=== PATIENT | female | born 1945 | race Caucasian/White ===

== ENCOUNTER 2016-04-27 08:00 | Outpatient (CLI) | payer MEDICARE, MEDICAID | END 2016-04-27 08:01 | disposition home or self-care (01) | DX: R53.83 Other fatigue (principal); I10 Essential (primary) hypertension; M85.80 Other specified disorders of bone density and structure, unspecified site; J44.9 Chronic obstructive pulmonary disease, unspecified; Z79.899 Other long term (current) drug therapy; I67.89 Other cerebrovascular disease; F43.8 Other reactions to severe stress ==

== ENCOUNTER 2016-04-27 10:17 | Outpatient (CLI) | payer MEDICARE, MEDICAID | END 2016-04-27 10:18 | disposition home or self-care (01) | DX: M19.012 Primary osteoarthritis, left shoulder (principal); R53.83 Other fatigue; J44.9 Chronic obstructive pulmonary disease, unspecified; M85.80 Other specified disorders of bone density and structure, unspecified site; I67.89 Other cerebrovascular disease; Z79.899 Other long term (current) drug therapy; F43.8 Other reactions to severe stress; I10 Essential (primary) hypertension ==

== ENCOUNTER 2016-05-30 10:33 | Outpatient (CLI) | payer MEDICARE, MEDICAID | END 2016-05-30 10:34 | disposition critical access hospital (66) | LOC: EMS 10:33 | PROVIDERS: ATTEND Surgery | DX: M25.551 Pain in right hip (principal); W10.1XXA Fall (on)(from) sidewalk curb, initial encounter; Y92.414 Local residential or business street as the place of occurrence of the external cause | CPT/HCPCS: A0425; A0429 ==

== ENCOUNTER 2016-05-30 10:47 | Emergency (ER) | payer MEDICARE, MEDICAID ==
[2016-05-30] MEDS ORDERED: HYDROcod/ACETAM 5/325 MG TABLET PO STA (12:12)
[2016-05-30] MEDS ORDERED: SODIUM CHLORIDE 0.9% 1,000 ML IV ONE (12:13)
[2016-05-30] MEDS ORDERED: THIAMINE 100 MG TABLET PO STA (12:13)
[2016-05-30] MEDS ORDERED: HYDROcod/ACETAM 5/325 MG TABLET ONE (12:17)
[2016-05-30] MEDS ORDERED: THIAMINE 100 MG TABLET PO ONE (12:17)
== END 2016-05-30 15:22 | disposition home or self-care (01) ==
DX: S32.511A Fracture of superior rim of right pubis, initial encounter for closed fracture (principal); S13.9XXA Sprain of joints and ligaments of unspecified parts of neck, initial encounter; S00.83XA Contusion of other part of head, initial encounter; W01.0XXA Fall on same level from slipping, tripping and stumbling without subsequent striking against object, initial encounter; Y92.018 Other place in single-family (private) house as the place of occurrence of the external cause; F10.129 Alcohol abuse with intoxication, unspecified; Y90.6 Blood alcohol level of 120-199 mg/100 ml; M50.30 Other cervical disc degeneration, unspecified cervical region; M47.9 Spondylosis, unspecified; I11.0 Hypertensive heart disease with heart failure; I50.9 Heart failure, unspecified; Z96.643 Presence of artificial hip joint, bilateral; J44.9 Chronic obstructive pulmonary disease, unspecified; K21.9 Gastro-esophageal reflux disease without esophagitis; Z86.73 Personal history of transient ischemic attack (TIA), and cerebral infarction without residual deficits; F17.200 Nicotine dependence, unspecified, uncomplicated
CPT/HCPCS: 36415; 70450; 71010; 72125; 73521; 80053; 83690; 85025; 99284; A9270; G0480

== ENCOUNTER 2016-09-22 23:50 | Outpatient (CLI) | payer MEDICARE, MEDICAID | END 2016-09-22 23:51 | disposition critical access hospital (66) | LOC: EMS 23:50 | PROVIDERS: ATTEND Surgery | DX: M25.511 Pain in right shoulder (principal); M54.9 Dorsalgia, unspecified; W18.30XA Fall on same level, unspecified, initial encounter; Y92.038 Other place in apartment as the place of occurrence of the external cause | CPT/HCPCS: A0425; A0427 ==

== ENCOUNTER 2016-09-23 00:03 | Emergency (ER) | payer MEDICARE, MEDICAID ==
--- NOTE | 2016-09-23 00:14 | ED Physician Documentation ---
PD HPI UPPER EXT INJURY - Stated complaint Stated Complaint: [facility] - Chief complaint Chief Complaint: Ext Problem - History obtained from History obtained from: Patient - History of Present Illness Location: Right, Shoulder Type of injury: Fall Where injury occurred: Street Timing - details: Abrupt onset Pain level max: 10 Pain level now: 10 Improved by: Nothing Worsened by: Moving, Palpating Associated symptoms: No: Weakness, Numbness Similar symptoms before: Has not had sx before Recently seen: Not recently seen - Additonal information Additional information: lost balance, fell, c/o right shoulder pain Review of Systems Musculoskeletal: reports: Joint pain. 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 HEENT: Tonsil/Adenoidectomy - Present Medications Home Medications: Ambulatory Orders Medication Instructions Recorded Confirmed FLUoxetine [PROzac] 40 mg PO DAILY 09/17/12 08/03/15 Lisinopril [Zestril] 10 mg PO DAILY 09/17/12 08/03/15 Omeprazole [PriLOSEC] 20 mg PO DAILY 09/17/12 08/03/15 Albuterol Sulfate 2.5 mg NEB Q2-4H PRN 12/26/14 08/03/15 Furosemide 40 mg PO DAILY 12/26/14 08/03/15 Hydrocodone/Acetaminophen [[place] 1 each PO Q6H PRN #20 tablet 06/09/15 08/03/15 5-325 Tablet] HYDROcod/ACETAM 5/325 [[place] 5/325] 1 - 2 ea PO Q6H PRN #20 tablet 08/03/15 HYDROcod/ACETAM 5/325 [[place] 5/325] 1 - 2 ea PO Q6H PRN #15 tablet 05/30/16 HYDROcod/ACETAM 5/325 [[place] 5/325] 1 - 2 ea PO Q6H PRN #12 tablet 09/23/16 - Allergies Allergies/Adverse Reactions: Allergies Allergy/AdvReac Type Severity Reaction Status Date / Time Penicillins Allergy Intermediate Hives Verified 09/23/16 00:07 - Social History Does the pt smoke?: Yes Smoking Status: Current some day smoker Does the pt drink ETOH?: Yes Does the pt have substance abuse?: No - Immunizations Immunizations are current?: No Immunizations: TDAP >10years/unknown - POLST Patient has POLST: No PD ED PE NORMAL - Vitals Vital signs reviewed: Yes - General General: Alert and oriented X 3, Well developed/nourished, Other (painful distress; holding RUE above head) - HEENT HEENT: PERRL, EOMI - Cardiac Cardiac: RRR, No murmur - Respiratory Respiratory: No respiratory distress, Clear bilaterally - Abdomen Abdomen: Soft, Non tender - Derm Derm: Normal color, Warm and dry - Neuro Neuro: Alert and oriented X 3, No motor deficit, No sensory deficit Results - Vitals Vitals: Vital Signs - 24 hr 09/23/16 09/23/16 09/23/16 00:05 00:54 01:09 Temperature 36.2 C L Heart Rate 65 87 66 Respiratory 16 16 18 Rate Blood Pressure 132/87 H 141/80 H 121/81 H O2 Saturation 94 97 100 09/23/16 09/23/16 09/23/16 01:10 01:16 01:22 Temperature Heart Rate 68 66 67 Respiratory 14 20 15 Rate Blood Pressure 118/74 118/69 O2 Saturation 98 100 09/23/16 09/23/16 09/23/16 01:26 01:32 01:35 Temperature Heart Rate 70 69 71 Respiratory 15 14 15 Rate Blood Pressure 123/66 123/66 128/69 O2 Saturation 100 99 95 09/23/16 09/23/16 01:51 02:40 Temperature Heart Rate 70 71 Respiratory 14 16 Rate Blood Pressure 118/66 116/67 O2 Saturation 97 94 Oxygen O2 Source [With Activity] Nasal cannula O2 Source Room air - Rads (name of study) right shoulder xrays Radiology: Prelim report reviewed, See rad report right shoulder post-reduction xrays Radiology: Prelim report reviewed, See rad report Procedures - Reduction Body part reduced: Right, Shoulder Fracture or dislocation: Dislocation Anesthesia: Conscious sedation, Morphine, Propofol Shoulder reduction technique: Traction - counter tract Reduction aftercare: NV intact, Xray confirms reduction, Alignment improved, Sling, Patient tolerated well PD MEDICAL DECISION MAKING - ED course Complexity details: reviewed results, re-evaluated patient, considered differential, d/w patient Departure - Departure Disposition: 01 Home, Self Care Clinical Impression: Dislocation closed, shoulder Condition: Good Instructions: ED Dislocation Shoulder Redu, ED Sling Follow-Up: Osbaldo Bunch MD [Provider Admit Priv/Credential] - Within 1 week Prescriptions: HYDROcod/ACETAM 5/325 [[place] 5/325] 1 - 2 ea PO Q6H PRN #12 tablet PRN Reason: Pain Discharge Date/Time: 09/23/16 03:07
[2016-09-23] MEDS ORDERED: MORPHINE 2 MG/ML SYRINGE IVP STA ×2 (00:19→00:54)
[2016-09-23] MEDS ORDERED: MORPHINE 2 MG/ML SYRINGE ONE ×2 (00:27→00:57)
[2016-09-23] MEDS ORDERED: PROPOFOL 200 MG/20 ML VIAL IVP STA (00:54)
[2016-09-23] MEDS ORDERED: PROPOFOL 1000 MG/100 ML 0 ML IV ONE (00:57)
[2016-09-23] MEDS ORDERED: PROPOFOL 200 MG/20 ML VIAL IVP ONE (01:00)
--- NOTE | 2016-09-23 01:18 | XRAY Preliminary Report ---
Exam: XR Shoulder 3 View RT IMPRESSION: Inferior dislocation of the humerus relative to the glenoid. Sensitivity and specificity are reduced due to difficulty with patient positioning. [facility] SITE ID: [id number]
--- NOTE | 2016-09-23 01:21 | XRAY Report ---
EXAM: RIGHT SHOULDER RADIOGRAPHY EXAM DATE: 09/23/2016 12:55 AM. CLINICAL HISTORY: Fall, pain, deformity of the shoulder. COMPARISON: 09/17/2012 TECHNIQUE: 3 views. FINDINGS: Bones: No definite displaced acute fracture demonstrated at this time. Joints: There is inferior dislocation of the humeral head relative to the glenoid. Soft tissues: The visualized hemithorax is unremarkable. No soft tissue swelling. IMPRESSION: Inferior dislocation of the humerus relative to the glenoid. Sensitivity and specificity are reduced due to difficulty with patient positioning. [facility] Referring Provider Line: [phone] SITE ID: [id number]
--- NOTE | 2016-09-23 02:20 | XRAY Preliminary Report ---
Exam: XR Shoulder 3 View RT IMPRESSION: 1. Successful reduction. 2. No displaced fracture. [facility] SITE ID: [id number]
--- NOTE | 2016-09-23 02:23 | XRAY Report ---
EXAM: RIGHT SHOULDER RADIOGRAPHY EXAM DATE: 09/23/2016 01:42 AM. CLINICAL HISTORY: Postreduction, difficulty holding position COMPARISON: Comparison made with exam acquired earlier today at 0038 hours. Also comparison made with 09/17/2012 TECHNIQUE: 3 views. FINDINGS: Bones: No displaced fracture demonstrated at this time. Joints: Anatomic glenohumeral articulation. There is severe degenerative change about the shoulder. Soft tissues: Chronic rotator cuff insufficiency with high riding humeral head. IMPRESSION: 1. Successful reduction. 2. No displaced fracture. [facility] Referring Provider Line: [phone] SITE ID: [id number]
[2016-09-23 02:41] VITALS: BP 116/67
== END 2016-09-23 03:07 | disposition home or self-care (01) ==
LOC: EDUNIT# → ED 00:03
DX: S43.034A Inferior dislocation of right humerus, initial encounter (principal); W18.30XA Fall on same level, unspecified, initial encounter; I10 Essential (primary) hypertension; F17.200 Nicotine dependence, unspecified, uncomplicated; Z86.73 Personal history of transient ischemic attack (TIA), and cerebral infarction without residual deficits; Z96.649 Presence of unspecified artificial hip joint
CPT/HCPCS: 23650; 94770; 96374; 96376; 99284

== ENCOUNTER 2016-10-03 13:37 | Outpatient (CLI) | payer MEDICARE, MEDICAID ==
--- NOTE | 2016-10-03 18:57 | XRAY Report ---
BILATERAL HIPS AND PELVIS: 10/03/2016 CLINICAL INDICATION: Right pubic ramus fracture. Frontal view of the hips and pelvis, and bilateral frog-leg lateral views of the hips are compared to previous films of 05/30/2016. There has been interval healing of the right superior and inferior pu bic rami fractures, with callus formation present. No new fracture is seen. Bilateral hip replaceme nts are stable. IMPRESSION: HEALING RIGHT SUPERIOR AND INFERIOR PUBIC RAMI FRACTURES. JOB #: [id number] EXT JOB #:[id number]
== END 2016-10-03 13:38 | disposition home or self-care (01) ==
LOC: DI.N 13:37
PROVIDERS: ATTEND Physician Assistant
DX: S32.591D Other specified fracture of right pubis, subsequent encounter for fracture with routine healing (principal)
CPT/HCPCS: 73521

== ENCOUNTER 2017-04-02 01:51 | Outpatient (CLI) | payer MEDICARE, MEDICAID | END 2017-04-02 01:52 | disposition critical access hospital (66) | LOC: EMS 01:51 | PROVIDERS: ATTEND Surgery | DX: R11.2 Nausea with vomiting, unspecified (principal); R05 Cough; R52 Pain, unspecified | CPT/HCPCS: A0425; A0429 ==

== ENCOUNTER 2017-04-02 02:07 | Inpatient (IN) | payer MEDICARE, MEDICAID ==
[2017-04-02] MEDS ORDERED: SODIUM CHLORIDE 0.9% 1,000 ML IV ONE ×3 (02:16→13:54)
[2017-04-02] MEDS ORDERED: KETOROLAC 60 MG/2 ML VIAL IVP STA (02:16)
[2017-04-02] MEDS ORDERED: ONDANSETRON 4 MG/2 ML VIAL IVP STA (02:16)
[2017-04-02] MEDS ORDERED: IPRATROPIUM/ALBUTEROL 3 ML NEB INH STA (02:16)
--- NOTE | 2017-04-02 02:51 | XRAY Preliminary Report ---
Exam: XR CHEST 1 VIEW X-RAY IMPRESSION: 1. Mild enlargement of cardiac silhouette. Borderline pulmonary vascular congestion. 2. New small left medial basilar airspace disease. This may be due to atelectasis, aspiration, and/or pneumonia. [facility] SITE ID: [id number]
--- NOTE | 2017-04-02 02:51 | XRAY Report ---
EXAM: CHEST RADIOGRAPHY EXAM DATE: 04/02/2017 02:28 AM. CLINICAL HISTORY: Fever COMPARISON: 05/30/2016, 08/03/2015 TECHNIQUE: 1 view. FINDINGS: Lungs/Pleura: Borderline central pulmonary vascular congestion noted. There is small patchy left medi al basilar airspace disease. No effusion or pneumothorax. Mediastinum: Nonspecific mild enlarged appearance of the right coronary hilum. Mild enlargement of ca rdiac silhouette. Other: Moderate right shoulder degenerative change. IMPRESSION: 1. Mild enlargement of cardiac silhouette. Borderline pulmonary vascular congestion. 2. New small left medial basilar airspace disease. This may be due to atelectasis, aspiration, and/or pneumonia. [facility] Referring Provider Line: [phone] SITE ID: [id number]
[2017-04-02] MEDS ORDERED: AZITHROMYCIN INJ 500 MG in SODIUM CHLORIDE 0.9% 250 ML IV STA (02:53)
--- NOTE | 2017-04-02 02:58 | ED Physician Documentation ---
PD HPI URI - Stated complaint Stated Complaint: BODY ACHES, WHEEZING - Chief complaint Chief Complaint: General - History obtained from History obtained from: Patient, EMS - History of Present Illness Timing - onset: Yesterday Timing details: Gradual onset, Still present Associated symptoms: Fever, Chills, Sweats, Nasal congestion, Sore throat, Dry cough Contributing factors: Sick contact Similar symptoms before: Has not had sx before Recently seen: Not recently seen - Additional information Additional information: Patient is a 72 year old female who is presenting to the emergency department for fever, chills, and generalized aches. patient states that the symptoms have been going on for a couple of days and they have become progressively worse. Review of Systems Constitutional: reports: Fever, Chills, Myalgias, Sweats Eyes: denies: Decreased vision, Photophobia Ears: denies: Loss of hearing, Ear pain Nose: reports: Rhinorrhea / runny nose, Congestion Throat: reports: Sore throat Cardiac: denies: Chest pain / pressure, Palpitations Respiratory: reports: Dyspnea, Cough, Wheezing GI: reports: Nausea. denies: Vomiting, Constipation : denies: Dysuria, Frequency, Hesitancy Skin: denies: Rash, Lesions Musculoskeletal: reports: Neck pain, Back pain, Extremity pain, Joint pain Neurologic: reports: Generalized weakness. 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 HEENT: Tonsil/Adenoidectomy - Present Medications Home Medications: Ambulatory Orders Medication Instructions Recorded Confirmed FLUoxetine [PROzac] 40 mg PO DAILY 09/17/12 08/03/15 Lisinopril [Zestril] 10 mg PO DAILY 09/17/12 08/03/15 Omeprazole [PriLOSEC] 20 mg PO DAILY 09/17/12 08/03/15 Albuterol Sulfate 2.5 mg NEB Q2-4H PRN 12/26/14 08/03/15 Furosemide 40 mg PO DAILY 12/26/14 08/03/15 Hydrocodone/Acetaminophen [[place] 1 each PO Q6H PRN #20 tablet 06/09/15 08/03/15 5-325 Tablet] HYDROcod/ACETAM 5/325 [[place] 5/325] 1 - 2 ea PO Q6H PRN #20 tablet 08/03/15 HYDROcod/ACETAM 5/325 [[place] 5/325] 1 - 2 ea PO Q6H PRN #15 tablet 05/30/16 HYDROcod/ACETAM 5/325 [[place] 5/325] 1 - 2 ea PO Q6H PRN #12 tablet 09/23/16 - Allergies Allergies/Adverse Reactions: Allergies Allergy/AdvReac Type Severity Reaction Status Date / Time Penicillins Allergy Intermediate Hives Verified 04/02/17 02:20 - Social History Does the pt smoke?: Yes Smoking Status: Current some day smoker Does the pt drink ETOH?: Yes Does the pt have substance abuse?: No - Immunizations Immunizations are current?: No Immunizations: TDAP >10years/unknown - POLST Patient has POLST: No PD ED PE NORMAL - HEENT HEENT: Atraumatic, Pharynx benign - Neck Neck: Supple, no meningeal sign - Abdomen Abdomen: Soft, Non tender, Non distended - Derm Derm: Normal color, Warm and dry, No rash - Extremities Extremities: No deformity, Normal ROM s pain, No edema, No calf tenderness / cord - Neuro Neuro: Alert and oriented X 3, No motor deficit, No sensory deficit, Normal speech Eye Opening: To Voice Motor: Obeys Commands Verbal: Oriented GCS Score: 14 PD ED PE EXPANDED - General General: Alert - HEENT HEENT: Dry mucous membranes - Respiratory Respiratory: Rhonchi, Right lower lobe, Left lower lobe. No: Stridor, Gasping, Accessory mm use Results - Vitals Vitals: Vital Signs - 24 hr 04/02/17 04/02/17 04/02/17 02:17 02:30 02:33 Temperature 37.9 C H Heart Rate 93 83 87 Respiratory 20 18 17 Rate Blood Pressure 152/77 H 154/86 H O2 Saturation 97 100 04/02/17 04/02/17 04/02/17 03:20 03:35 03:59 Temperature Heart Rate 87 101 H Respiratory 18 15 16 Rate Blood Pressure 136/73 H 136/73 H O2 Saturation 88 L 97 96 04/02/17 04:19 Temperature Heart Rate 108 H Respiratory 20 Rate Blood Pressure 133/71 H O2 Saturation 97 Oxygen O2 Source [] Nasal cannula O2 Source Nasal cannula Oxygen Flow Rate 2 - EKG (time done) 0349 Rate: Rate (enter#) (99) Rhythm: NSR QRS: LVH Ischemia: ST depression Compare to prior EKG: Changed from prior EKG Computer interpretation: Agree with computer - Labs Labs: Laboratory Tests 04/02/17 04/02/17 04/02/17 02:23 03:27 03:27 WBC 21.0 H RBC 4.24 Hgb 13.5 Hct 40.1 MCV 94.5 MCH 31.8 H MCHC 33.6 RDW 14.1 Plt Count 229 MPV 8.0 Neut # 19.8 H Lymph # 0.4 L Crawford # 0.8 Eos # 0.0 Baso # 0.0 Absolute Nucleated RBC 0.01 Nucleated RBC % 0.0 Manual Slide Review Indicated WBC Morphology NORMAL APPEARANCE Platelet Estimate NORMAL (130-450,000) Platelet Morphology NORMAL APPEARANCE RBC Morph Micro Appear NORMAL APPEARANCE Sodium 138 Potassium 3.4 L Chloride 104 Carbon Dioxide 23 Anion Gap 11.0 BUN 14 Creatinine 1.0 Estimated GFR (MDRD) 55 L Glucose 121 H Calcium 8.9 Total Bilirubin 1.7 H AST 23 ALT 12 Alkaline Phosphatase 70 Troponin I B-Natriuretic Peptide Total Protein 7.7 Albumin 3.9 Globulin 3.8 Albumin/Globulin Ratio 1.0 Lipase 13 L Influenza A (Rapid) Negative Influenza B (Rapid) Negative Influenza Types A,B Ag - 04/02/17 04/02/17 03:27 03:27 WBC RBC Hgb Hct MCV MCH MCHC RDW Plt Count MPV Neut # Lymph # Crawford # Eos # Baso # Absolute Nucleated RBC Nucleated RBC % Manual Slide Review WBC Morphology Platelet Estimate Platelet Morphology RBC Morph Micro Appear Sodium Potassium Chloride Carbon Dioxide Anion Gap BUN Creatinine Estimated GFR (MDRD) Glucose Calcium Total Bilirubin AST ALT Alkaline Phosphatase Troponin I < 0.04 B-Natriuretic Peptide 924 H Total Protein Albumin Globulin Albumin/Globulin Ratio Lipase Influenza A (Rapid) Influenza B (Rapid) Influenza Types A,B Ag - Rads (name of study) chest x-ray Radiology: Final report received (new right medial consolidation) PD MEDICAL DECISION MAKING - ED course Complexity details: reviewed old records, reviewed results, re-evaluated patient , considered differential, d/w patient ED course: patient was seen and examined at bedside. IV access was gained and patient was treated with a fluid bolus. Chest x-ray was performed and showed a new right sided consolidation and mild pulmonary vascular congestion. Patient was treated with azithromycin. Influenza A was negative. when bnp came back it was found to be 900. patient's last bnp was only 156 three years ago. Patient was treated with a lasix 40mg. Hospitalist was contacted and the case was discussed with her. juan was admitted for further evaluation and care. Departure - Departure Disposition: 66 [facility] DC/Xfer Clinical Impression: Pneumonia, CHF (congestive heart failure) Condition: Stable
[2017-04-02 03:46] LABS: BASOPHILS % (AUTO) 0.2 %; HGB - HEMOGLOBIN 13.5 g/dL (12.0-16.0); LYMPHOCYTES # (AUTO) 0.4 10^3/uL (1.5-3.5); LYMPHOCYTES % (AUTO) 1.9 %; MEAN CORPUSCULAR HEMOGLOBIN 31.8 pg (27.0-31.0); MEAN CORPUSCULAR HGB CONC 33.6 g/dL (32.0-36.0); MEAN CORPUSCULAR VOLUME 94.5 fL (81.0-99.0); MONOCYTES # (AUTO) 0.8 10^3/uL (0.0-1.0); MONOCYTES % (AUTO) 3.6 %; NEUTROPHILS # (AUTO) 19.8 10^3/uL (1.5-6.6); NEUTROPHILS % (AUTO) 94.3 %; PLT - PLATELET COUNT 229 10^3/uL (130-450); RED BLOOD COUNT 4.24 10^6/uL (4.20-5.40); RED CELL DISTRIBUTION WIDTH 14.1 % (12.0-15.0)
[2017-04-02] MEDS ORDERED: ACETAMINOPHEN 500 MG TABLET PO STA (03:55)
[2017-04-02 03:56] LABS: ALBUMIN 3.9 g/dL (3.2-5.5); BILIRUBIN,TOTAL 1.7 mg/dL (0.2-1.0); CALCIUM 8.9 mg/dL (8.5-10.3); TOTAL PROTEIN 7.7 g/dL (6.7-8.2)
[2017-04-02 04:17] LABS: PLATELET ESTIMATE, MANUAL NORMAL (130-450,000) (NORMAL); PLATELET MORPHOLOGY NORMAL APPEARANCE (NORMAL); RBC MORPHOLOGY (MULTIPLE) NORMAL APPEARANCE (NORMAL)
[2017-04-02] MEDS ORDERED: FUROSEMIDE 40 MG/4 ML VIAL IVP STA (04:18)
[2017-04-02] MEDS ORDERED: TEMAZEPAM 15 MG CAPSULE PO PRN (04:56)
[2017-04-02] MEDS ORDERED: ACETAMINOPHEN 325 MG TABLET PO PRN (04:56)
[2017-04-02] MEDS ORDERED: PROCHLORPERAZINE 10 MG/2 ML VIAL IVP PRN (04:56)
[2017-04-02] MEDS ORDERED: SODIUM CHLORIDE FLUSH 0.9% 10 ML SYRINGE IVP PRN (04:56)
--- NOTE | 2017-04-02 05:02 | HISTORY & PHYSICAL EXAMINATION ---
Chief Complaint - Chief Complaint Chief Complaint: Shortness of breath and body aches History of Present Illness - Admitted From Admitted From:: Home - History of Present Illness HPI Comment/Other: Ms. Anel Nance is a 72-year-old lady with a history of worsening body aches and chills with some difficulty breathing over the last several days. This has progressed to the point where the patient felt she needed to come into the emergency department. While in the ED the patient was found to have a small patchy infiltrate and increasing vascular markings on her chest x-ray. She was also found to have a BNP greater than 900. 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 - Substance History Use: Uses substance without health or social issues: Tobacco, Alcohol - POLST Patient has POLST: Yes POLST Status: DNR Meds/Allgy - Home Medications Home Medications: Ambulatory Orders Medication Instructions Recorded Confirmed FLUoxetine [PROzac] 40 mg PO DAILY 09/17/12 08/03/15 Lisinopril [Zestril] 10 mg PO DAILY 09/17/12 08/03/15 Omeprazole [PriLOSEC] 20 mg PO DAILY 09/17/12 08/03/15 Albuterol Sulfate 2.5 mg NEB Q2-4H PRN 12/26/14 08/03/15 Furosemide 40 mg PO DAILY 12/26/14 08/03/15 Hydrocodone/Acetaminophen [[place] 1 each PO Q6H PRN #20 tablet 06/09/15 08/03/15 5-325 Tablet] HYDROcod/ACETAM 5/325 [[place] 5/325] 1 - 2 ea PO Q6H PRN #20 tablet 08/03/15 HYDROcod/ACETAM 5/325 [[place] 5/325] 1 - 2 ea PO Q6H PRN #15 tablet 05/30/16 HYDROcod/ACETAM 5/325 [[place] 5/325] 1 - 2 ea PO Q6H PRN #12 tablet 09/23/16 - Allergies Allergies/Adverse Reactions: Allergies Allergy/AdvReac Type Severity Reaction Status Date / Time Penicillins Allergy Intermediate Hives Verified 04/02/17 02:20 Review of Systems - Constitutional Constitutional: reports: Fatigue, Fever, Chills, Weakness, Poor appetite - Eyes Eyes: denies: Pain, Irritation, Blurred vision, Dipolpia - Ears, Nose & Throat Ears, Nose & Throat: denies: Ear pain, Hearing loss, Hearing aids, Tinnitus, Vertigo, Nasal discharge - Cardiovascular Cariovascular: denies: Irregular heart rate, Palpitations, Chest pain, Syncope - Respiratory Respiratory: reports: Cough, Sputum production, SOB with exertion. denies: Wheezing, Hemoptysis, Orthopnea - Gastrointestinal Gastrointestinal: reports: Abdominal pain, Nausea, Vomiting. denies: Rectal bleeding, Reed blood emesis - Genitourinary Genitourinary: denies: Dysuria, Frequency, Urgency, Hematuria - Musculoskeletal Musculoskeletal: reports: Muscle aches, Stiffness. denies: Muscle pain, Back pain, Gout, Joint pain - Integumentary Integumentary: denies: Rash, Pruritis, Lesions, Dryness - Neurological Neurological: reports: General weakness, Headache. denies: Focal weakness, Dizziness, Numbness - Psychiatric Psychiatric: denies: Depression, Anxiety, Suicidal, Hallucinations - Endocrine Endocrine: denies: Polyuria, Polydypsia, Polyphagia - Hematologic/Lymphatic Hematologic/Lymphatic: denies: Anemia, Bruising, Petechiae, Lymphadenopathy - All Other Systems All Other Systems: reports: Reviewed and negative Exam - Vital Signs Reviewed Vital Signs: Yes Vital Signs: Vital Signs x48h Temp Pulse Resp BP Pulse Ox 04/02/17 04:43 37.6 C H 101 H 19 98 04/02/17 04:36 96 18 123/75 98 04/02/17 04:30 19 04/02/17 04:19 108 H 20 133/71 H 97 04/02/17 03:59 101 H 16 136/73 H 96 04/02/17 03:35 87 15 136/73 H 97 04/02/17 03:20 18 88 L 04/02/17 02:33 87 17 154/86 H 100 04/02/17 02:30 83 18 04/02/17 02:17 37.9 C H 93 20 152/77 H 97 - Physical Exam General Appearance: positive: Alert, Mild distress Eyes Bilateral: positive: Normal inspection, PERRL, EOMI, No lid inflammation ENT: positive: ENT inspection nml, Pharynx nml, Dry mucous membranes. negative : Oral lesions Neck: positive: Nml inspection, Thyroid nml, No JVD, Trachea midline. negative : Thyromegaly Respiratory: positive: Chest non-tender, No respiratory distress, Breath sounds nml. negative: Wheezes, Rales, Rhonchi Cardiovascular: positive: No murmur, No gallop, Tachycardia Peripheral Pulses: positive: 1+ Abdomen: positive: Non-tender, No organomegaly, Nml bowel sounds, No distention. negative: Guarding, Rebound Back: positive: Nml inspection. negative: CVA tenderness (R), CVA tenderness (L ) Skin: positive: Color nml, No rash, Warm, Dry. negative: Cyanosis Extremities: positive: Non-tender, Full ROM, Nml appearance Neurologic/Psychiatric: positive: Oriented x3, CN's nml (2-12), Motor nml, Sensation nml, Mood/affect nml Conclusion/Plan - Problem List (1) CHF (congestive heart failure) Conclusion/Plan: We will gently diurese the patient and monitor her BNP. We will obtain a transthoracic echocardiogram to assess any changes from her last one. (2) Pneumonia Conclusion/Plan: We will continue with azithromycin for CAP. We will also give the patient supplemental oxygen and nebulizer treatments as needed. (3) COPD (chronic obstructive pulmonary disease) Conclusion/Plan: We will continue with nebulizer treatments and supplemental oxygen. Qualifiers: COPD type: COPD with acute lower respiratory infection Qualified Code(s): J44.0 - Chronic obstructive pulmonary disease with acute lower respiratory infection - Lab Results Lab results reviewed: Yes Fish Bones: 04/02/17 03:27 04/02/17 03:27 - Diagnostic Imaging Results Diagnostic Imaging Results: positive: Final report reviewed Diagnostic Imaging Results Comments: EXAM: CHEST RADIOGRAPHY EXAM DATE: 04/02/2017 02:28 AM. CLINICAL HISTORY: Fever COMPARISON: 05/30/2016, 08/03/2015 TECHNIQUE: 1 view. FINDINGS: Lungs/Pleura: Borderline central pulmonary vascular congestion noted. There is small patchy left medial basilar airspace disease. No effusion or pneumothorax. Mediastinum: Nonspecific mild enlarged appearance of the right coronary hilum. Mild enlargement of cardiac silhouette. Other: Moderate right shoulder degenerative change. IMPRESSION: 1. Mild enlargement of cardiac silhouette. Borderline pulmonary vascular congestion. 2. New small left medial basilar airspace disease. This may be due to atelectasis, aspiration, and/ or pneumonia. Core Measures - Anticipated LOS I expect patient to be DC'd or transferred within 96 hours.: Yes - DVT/VTE - Prophylaxis VTE/DVT Device ordered at admit?: Yes
[2017-04-02] MEDS ORDERED: SODIUM CHLORIDE FLUSH 0.9% 10 ML SYRINGE IVP SCH (06:00)
[2017-04-02 06:14] LABS: BASOPHILS # (AUTO) 0.1 10^3/uL (0.0-0.1); BASOPHILS % (AUTO) 0.6 %; HGB - HEMOGLOBIN 13.2 g/dL (12.0-16.0); LYMPHOCYTES # (AUTO) 0.4 10^3/uL (1.5-3.5); LYMPHOCYTES % (AUTO) 1.6 %; MEAN CORPUSCULAR HEMOGLOBIN 32.2 pg (27.0-31.0); MEAN CORPUSCULAR HGB CONC 34.4 g/dL (32.0-36.0); MEAN CORPUSCULAR VOLUME 93.7 fL (81.0-99.0); MEAN PLATELET VOLUME 7.5 fL (7.9-10.8); MONOCYTES # (AUTO) 0.5 10^3/uL (0.0-1.0); MONOCYTES % (AUTO) 2.4 %; NEUTROPHILS # (AUTO) 21.7 10^3/uL (1.5-6.6); NEUTROPHILS % (AUTO) 95.4 %; PLT - PLATELET COUNT 223 10^3/uL (130-450); RED BLOOD COUNT 4.11 10^6/uL (4.20-5.40); WHITE BLOOD COUNT 22.7 x10^3/uL (4.8-10.8)
[2017-04-02 06:33] LABS: CALCIUM 8.8 mg/dL (8.5-10.3); CREATININE 1.1 mg/dL (0.4-1.0); MAGNESIUM 1.1 mg/dL (1.7-2.8)
[2017-04-02] MEDS: SODIUM CHLORIDE FLUSH 0.9% 10 ML SYRINGE IVP SCH ×3 (06:48→22:23)
[2017-04-02] MEDS: PANTOPRAZOLE 40 MG TABLET PO SCH (06:48)
[2017-04-02] MEDS: SODIUM CHLORIDE FLUSH 0.9% 10 ML SYRINGE IVP PRN ×2 (08:51→09:14)
[2017-04-02] MEDS ORDERED: IPRATROPIUM/ALBUTEROL 3 ML NEB INH SCH (09:00)
[2017-04-02] MEDS ORDERED: POLYETHYLENE GLYCOL 3350 17 GM PACKET PO SCH (09:00)
[2017-04-02] MEDS ORDERED: NON FORMULARY MED (Omeprazole [Prilosec] 20 MG) PO SCH (09:00)
[2017-04-02] MEDS: HYDROcod/ACETAM 5/325 MG TABLET PO PRN ×2 (09:05→16:33)
[2017-04-02] MEDS: FUROSEMIDE 40 MG/4 ML VIAL IVP SCH (09:06)
[2017-04-02] MEDS: LISINOPRIL 5 MG TABLET PO SCH (09:06)
[2017-04-02] MEDS: FLUoxetine 10 MG CAPSULE PO SCH (09:06)
[2017-04-02] MEDS: POLYETHYLENE GLYCOL 3350 17 GM PACKET PO SCH (09:06)
[2017-04-02 11:27] LABS: ABG PCO2 37 mmHg (34-45); ABG PH 7.46 (7.35-7.45); ABG PO2 62 mmHg (80-100)
[2017-04-02 11:28] LABS: ABG HCO3 25.6 mmol/L (22.0-26.0); ABG OXYGEN SATURATION 93 % (94-98); ABG TCO2 26.7 MMOL/L (21.0-29.0); ALLEN TEST POSITIVE
[2017-04-02] MEDS: DOPamine 800 MG/500 ML 800 MG/500 ML BAG IV SCH (14:59)
[2017-04-02] MEDS: SODIUM CHLORIDE 0.9% 500 ML IV ONE ×2 (15:01→15:46)
[2017-04-02] MEDS: metroNIDAZOLE 500 MG/100 ML 500 MG/100 ML BAG IV SCH ×2 (15:37→20:11)
[2017-04-02] MEDS: cefTRIAXone 2 GM in SODIUM CHLORIDE 0.9% MINIBAG 100 ML IV SCH (15:45)
[2017-04-02] MEDS: POTASSIUM CHLORIDE 20 MEQ/15 ML UDC PO SCH (16:25)
[2017-04-02] MEDS ORDERED: POTASSIUM CHLORIDE 20 MEQ TABLET PO ONE (16:25)
[2017-04-02 16:34] LABS: BILIRUBIN,URINE NEGATIVE (NEGATIVE); GLUCOSE, URINE (UA) NEGATIVE (NEGATIVE); KETONES,URINE (UA) NEGATIVE (NEGATIVE); LEUKOCYTE ESTERASE, URINE NEGATIVE (NEGATIVE); NITRITE,URINE NEGATIVE (NEGATIVE); OCCULT BLOOD,URINE NEGATIVE (NEGATIVE); PH,URINE 5.5 PH (5.0-7.5); PROTEIN,URINE NEGATIVE (NEGATIVE); UROBILINOGEN,URINE 0.2 (NORMAL) E.U./dL (NORMAL)
[2017-04-02 16:37] LABS: CLARITY,URINE CLEAR (CLEAR)
[2017-04-02] MEDS: MAGNESIUM SULFATE 2 GRAM 2 GM/50 ML BAG IV SCH ×2 (16:37→17:55)
--- NOTE | 2017-04-02 19:18 | PROVIDER PROGRESS NOTE ---
Subjective - Prog Note Date Prog Note Date: 04/02/17 Prog Note Time: 19:16 - Subjective Pt reports feeling: Worse Subjective: This morning the patient was relatively stable from the standpoint of admission. Her vitals have been stable, and she was not deteriorating. As the morning went on, it was noticed that the patient was getting more more lethargic. She spiked a temperature to 38. Blood gases showed her to be mildly hypoxemic but not acidotic. She continued to become less and less responsive with hypotension. Urinalysis was negative, a chest x-ray was the only source of infection. Abdominal exam did not reveal any changes in that status. Because of the severe hypotension she was transferred to the ICU, had a triple-lumen central line placed, and started on levo fed. I also expanded her antibiotics for broader coverage to include staph, stronger strep coverage, and aspiration coverage. She has now been slowly waking up. I have spoken to her daughter Brianna. There are 2 other children but those children are unreachable via their phone numbers. And Brianna is the only one that I could speak to. She has been updated on the case with regards to mom's sepsis, hypotension from sepsis, and her mild response and stable condition right now. Current Medications - Current Medications Current Medications: Active Medications Acetaminophen (Tylenol) 650 mg PO Q4HR PRN PRN Reason: Pain 1 to 4 Acetaminophen/Hydrocodone Bitart ([place] 5/325) 1 tab PO Q4HR PRN PRN Reason: Pain 5 to 7 Last Admin: 04/02/17 16:33 Dose: 1 tab Albuterol/Ipratropium (Duoneb) 3 ml INH Q4HR PRN PRN Reason: Wheezing Fluoxetine HCl (Prozac) 40 mg PO DAILY [facility] Last Admin: 04/02/17 09:06 Dose: 40 mg Furosemide (Lasix Inj 40 Mg Vial) 40 mg IVP DAILY [facility] Last Admin: 04/02/17 09:06 Dose: 40 mg Azithromycin 500 mg/ Sodium (Chloride) 250 mls @ 250 mls/hr IV DAILY@2200 [facility] Metronidazole (Flagyl 500 Mg/100 Ml) 500 mg in 100 mls @ 100 mls/hr IV Q6H [facility] Last Infusion: 04/02/17 16:56 Dose: Infused Ceftriaxone Sodium 2 gm/ (Sodium Chloride) 100 mls @ 200 mls/hr IV DAILY [facility] Last Infusion: 04/02/17 17:05 Dose: Infused Dopamine HCl/Dextrose (Dopamine) 800 mg in 500 mls @ 6.413 mls/hr IV .Q72H [facility] ; 2 MCG/KG/MIN PRN Reason: Protocol Last Titration: 04/02/17 17:13 Dose: 7 mcg/kg/min, 22.444 mls/hr Lisinopril (Zestril) 10 mg PO DAILY [facility] Last Admin: 04/02/17 09:06 Dose: 10 mg Pantoprazole Sodium (Protonix) 40 mg PO QDAC [facility] Last Admin: 04/02/17 06:48 Dose: 40 mg Polyethylene Glycol (Miralax) 17 gm PO DAILY [facility] Last Admin: 04/02/17 09:06 Dose: 17 gm Potassium Chloride () 40 meq PO DAILYWM [facility] Last Admin: 04/02/17 16:25 Dose: Not Given Prochlorperazine Edisylate (Compazine Inj) 10 mg IVP Q6HR PRN PRN Reason: Nausea / Vomiting Last Admin: 04/02/17 08:50 Dose: 10 mg Sodium Chloride (Normal Saline Flush 0.9%) 10 ml IVP PRN PRN PRN Reason: NEEDED PER PROVIDER ORDERS Last Admin: 04/02/17 09:14 Dose: 10 ml Sodium Chloride (Normal Saline Flush 0.9%) 10 ml IVP Q8HR [facility] Last Admin: 04/02/17 13:54 Dose: 10 ml Temazepam (Restoril) 15 mg PO QPM PRN PRN Reason: Insomnia Omeprazole [PriLOSEC] 20 mg PO QDAC 09/17/12 Carvedilol [Coreg] 3.125 mg PO BID 04/02/17 Fluoxetine HCl [Prozac] 40 mg PO DAILY 04/02/17 Oxybutynin [Ditropan] 5 mg PO DAILY 04/02/17 Oxybutynin [Ditropan] 10 mg PO QPM 04/02/17 Objective - Vital Signs/Intake & Output Reviewed Vital Signs: Yes Vital Signs: Vital Signs x48h Temp Pulse Pulse Resp BP BP Pulse Ox 04/02/17 18:56 104 H 15 88/57 L 94 04/02/17 18:00 124 H 20 91/63 93 04/02/17 17:56 140 H 04/02/17 17:00 37.0 C 105 H 20 96/47 L 95 04/02/17 16:00 99 20 98/53 L 93 04/02/17 15:30 88 19 92/53 L 94 04/02/17 15:15 83 20 111/77 95 04/02/17 15:00 77 21 70/52 L 96 04/02/17 14:45 79 22 75/50 L 98 04/02/17 13:50 37.6 C H 95 20 81/46 L 95 04/02/17 13:46 95 70/42 L 94 04/02/17 12:59 38 C H 94 22 82/50 L 94 04/02/17 12:46 80/38 L 04/02/17 12:26 37.3 C 89 22 82/51 L 96 Intake & Output: Intake & Output 03/30/17 03/31/17 04/01/17 04/02/17 23:59 23:59 23:59 23:59 Intake Total 1655.940 Output Total 180 Balance 1475.940 - Objective General Appearance: positive: No acute distress, Lethargic (But much more awake than she was this morning. She is easily confused, and has to really squint and think about things before she answers my questions. Speech is slow.) Eyes Bilateral: positive: PERRL ENT: positive: Pharynx nml Neck: positive: No JVD. negative: Stiff neck, Carotid bruit Respiratory: positive: Chest non-tender, No respiratory distress, Rales. negative: Wheezes, Rhonchi Cardiovascular: positive: Regular rate & rhythm, Tachycardia. negative: Gallop/ S4, Friction rub Abdomen: positive: Non-tender, No organomegaly, No distention, Other (Quiet bowel sounds) Skin: positive: Warm, Dry Extremities: positive: Pedal edema Neurologic/Psychiatric: positive: CN's nml (2-12), Motor nml, Disoriented to place, Disoriented to time - Lab Results Fish Bones: 04/02/17 06:04 04/02/17 06:04 Other Labs: Lab Results x24hrs 04/02/17 04/02/17 04/02/17 Range/Units 16:20 13:37 11:18 WBC (4.8-10.8) x10^3/uL RBC (4.20-5.40) 10^6/uL Hgb (12.0-16.0) g/dL Hct (37.0-47.0) % MCV (81.0-99.0) fL MCH (27.0-31.0) pg MCHC (32.0-36.0) g/dL RDW (12.0-15.0) % Plt Count (130-450) 10^3/uL MPV (7.9-10.8) fL Neut # (1.5-6.6) 10^3/uL Lymph # (1.5-3.5) 10^3/uL [place] # (0.0-1.0) 10^3/uL Eos # (0.0-0.7) 10^3/uL Baso # (0.0-0.1) 10^3/uL Absolute Nucleated RBC x10^3/uL Nucleated RBC % /100WBC Bld Gas Analysis Time 1124 Sample Site LEFT RADIAL ABG pH 7.46 H (7.35-7.45) ABG pCO2 37 (34-45) mmHg ABG pO2 62 L (80-100) mmHg ABG HCO3 25.6 (22.0-26.0) mmol/L ABG Total CO2 26.7 (21.0-29.0) MMOL/L ABG O2 Saturation 93 L (94-98) % ABG Base Excess 2.0 (-2.0-3.0) mmol/L Kareem Test POSITIVE O2 Delivery Device NASAL CANNULA O2 Liters/Min 2.00 LPM Sodium (135-145) mmol/L Potassium (3.5-5.0) mmol/L Chloride (101-111) mmol/L Carbon Dioxide (21-32) mmol/L Anion Gap (6-13) BUN (6-20) mg/dL Creatinine (0.4-1.0) mg/dL Estimated GFR (MDRD) (>89) Glucose (70-100) mg/dL Lactic Acid 1.7 (0.5-2.2) mmol/L Calcium (8.5-10.3) mg/dL Magnesium (1.7-2.8) mg/dL Troponin I (<0.49) ng/mL B-Natriuretic Peptide (5-100) pg/mL Urine Color YELLOW Urine Clarity CLEAR (CLEAR) Urine pH 5.5 (5.0-7.5) PH Ur Specific [place] 1.010 (1.002-1.030) Urine Protein NEGATIVE (NEGATIVE) mg/dL Urine Glucose (UA) NEGATIVE (NEGATIVE) mg/dL Urine Ketones NEGATIVE (NEGATIVE) mg/dL Urine Occult Blood NEGATIVE (NEGATIVE) Urine Nitrite NEGATIVE (NEGATIVE) Urine Bilirubin NEGATIVE (NEGATIVE) Urine Urobilinogen 0.2 (NORMAL) (NORMAL) E.U./dL Ur Leukocyte Esterase NEGATIVE (NEGATIVE) Ur Microscopic Review NOT INDICATED Urine Culture Comments NOT INDICATED 04/02/17 04/02/17 04/02/17 Range/Units 06:04 06:04 06:04 WBC (4.8-10.8) x10^3/uL RBC (4.20-5.40) 10^6/uL Hgb (12.0-16.0) g/dL Hct (37.0-47.0) % MCV (81.0-99.0) fL MCH (27.0-31.0) pg MCHC (32.0-36.0) g/dL RDW (12.0-15.0) % Plt Count (130-450) 10^3/uL MPV (7.9-10.8) fL Neut # (1.5-6.6) 10^3/uL Lymph # (1.5-3.5) 10^3/uL [place] # (0.0-1.0) 10^3/uL Eos # (0.0-0.7) 10^3/uL Baso # (0.0-0.1) 10^3/uL Absolute Nucleated RBC x10^3/uL Nucleated RBC % /100WBC Bld Gas Analysis Time Sample Site ABG pH (7.35-7.45) ABG pCO2 (34-45) mmHg ABG pO2 (80-100) mmHg ABG HCO3 (22.0-26.0) mmol/L ABG Total CO2 (21.0-29.0) MMOL/L ABG O2 Saturation (94-98) % ABG Base Excess (-2.0-3.0) mmol/L Kareem Test O2 Delivery Device O2 Liters/Min LPM Sodium 137 (135-145) mmol/L Potassium 3.2 L (3.5-5.0) mmol/L Chloride 104 (101-111) mmol/L Carbon Dioxide 23 (21-32) mmol/L Anion Gap 10.0 (6-13) BUN 16 (6-20) mg/dL Creatinine 1.1 H (0.4-1.0) mg/dL Estimated GFR (MDRD) 49 L (>89) Glucose 115 H (70-100) mg/dL Lactic Acid (0.5-2.2) mmol/L Calcium 8.8 (8.5-10.3) mg/dL Magnesium 1.1 L (1.7-2.8) mg/dL Troponin I 0.05 (<0.49) ng/mL B-Natriuretic Peptide 1120 H (5-100) pg/mL Urine Color Urine Clarity (CLEAR) Urine pH (5.0-7.5) PH Ur Specific [place] (1.002-1.030) Urine Protein (NEGATIVE) mg/dL Urine Glucose (UA) (NEGATIVE) mg/dL Urine Ketones (NEGATIVE) mg/dL Urine Occult Blood (NEGATIVE) Urine Nitrite (NEGATIVE) Urine Bilirubin (NEGATIVE) Urine Urobilinogen (NORMAL) E.U./dL Ur Leukocyte Esterase (NEGATIVE) Ur Microscopic Review Urine Culture Comments 04/02/17 Range/Units 06:04 WBC 22.7 H (4.8-10.8) x10^3/uL RBC 4.11 L (4.20-5.40) 10^6/uL Hgb 13.2 (12.0-16.0) g/dL Hct 38.5 (37.0-47.0) % MCV 93.7 (81.0-99.0) fL MCH 32.2 H (27.0-31.0) pg MCHC 34.4 (32.0-36.0) g/dL RDW 14.0 (12.0-15.0) % Plt Count 223 (130-450) 10^3/uL MPV 7.5 L (7.9-10.8) fL Neut # 21.7 H (1.5-6.6) 10^3/uL Lymph # 0.4 L (1.5-3.5) 10^3/uL [place] # 0.5 (0.0-1.0) 10^3/uL Eos # 0.0 (0.0-0.7) 10^3/uL Baso # 0.1 (0.0-0.1) 10^3/uL Absolute Nucleated RBC 0.00 x10^3/uL Nucleated RBC % 0.0 /100WBC Bld Gas Analysis Time Sample Site ABG pH (7.35-7.45) ABG pCO2 (34-45) mmHg ABG pO2 (80-100) mmHg ABG HCO3 (22.0-26.0) mmol/L ABG Total CO2 (21.0-29.0) MMOL/L ABG O2 Saturation (94-98) % ABG Base Excess (-2.0-3.0) mmol/L Kareem Test O2 Delivery Device O2 Liters/Min LPM Sodium (135-145) mmol/L Potassium (3.5-5.0) mmol/L Chloride (101-111) mmol/L Carbon Dioxide (21-32) mmol/L Anion Gap (6-13) BUN (6-20) mg/dL Creatinine (0.4-1.0) mg/dL Estimated GFR (MDRD) (>89) Glucose (70-100) mg/dL Lactic Acid (0.5-2.2) mmol/L Calcium (8.5-10.3) mg/dL Magnesium (1.7-2.8) mg/dL Troponin I (<0.49) ng/mL B-Natriuretic Peptide (5-100) pg/mL Urine Color Urine Clarity (CLEAR) Urine pH (5.0-7.5) PH Ur Specific [place] (1.002-1.030) Urine Protein (NEGATIVE) mg/dL Urine Glucose (UA) (NEGATIVE) mg/dL Urine Ketones (NEGATIVE) mg/dL Urine Occult Blood (NEGATIVE) Urine Nitrite (NEGATIVE) Urine Bilirubin (NEGATIVE) Urine Urobilinogen (NORMAL) E.U./dL Ur Leukocyte Esterase (NEGATIVE) Ur Microscopic Review Urine Culture Comments Assessment/Plan - Problem List (1) Sepsis associated hypotension Impression: Again, only, seems to be her left lung pneumonia. She is slowly responded to add an antibiotic coverage as well as Levophed. Plan: keep in ICU until off of levophed. lactic acid already done troponin negative. (2) Pneumonia Impression: history of alcohol abuse. at risk for strep. Day #1 of azithromycin. Added Day #1 flagyl for aspiration and rocephin for strep. (3) Heart failure with preserved ejection fraction Impression: ECHO shows preserved LVEF and diastolic dysfunction. no pulmonary HTN SOB and BNP elevated. given bolus to preserve her BP already on diuretic. monitor I/O lasix to be adjuted (4) Hypokalemia Impression: ICU electrolyte protocol ordered for supplement. (5) COPD (chronic obstructive pulmonary disease) Impression: no acute exacerbaton by ABG. nebs and steroids if needed. Qualifiers: COPD type: COPD with acute lower respiratory infection Qualified Code(s): J44.0 - Chronic obstructive pulmonary disease with acute lower respiratory infection
[2017-04-02] MEDS ORDERED: SODIUM CHLORIDE 0.9% 500 ML IV PRN (20:09)
[2017-04-02] MEDS: AZITHROMYCIN INJ 500 MG in SODIUM CHLORIDE 0.9% 250 ML IV SCH (22:11)
[2017-04-03] MEDS: metroNIDAZOLE 500 MG/100 ML 500 MG/100 ML BAG IV SCH ×4 (02:24→20:14)
[2017-04-03 05:03] LABS: CALCIUM 8.5 mg/dL (8.5-10.3); MAGNESIUM 2.2 mg/dL (1.7-2.8); PHOSPHORUS 2.3 mg/dL (2.5-4.6)
[2017-04-03] MEDS ORDERED: POTASSIUM CHLORIDE 20 MEQ/15 ML UDC PO ONE (06:00)
[2017-04-03] MEDS: PANTOPRAZOLE 40 MG TABLET PO SCH (06:22)
[2017-04-03] MEDS: NEUTRA-PHOS 250 MG TABLET PO SCH ×2 (06:23→08:35)
[2017-04-03] MEDS: POTASSIUM CHLORIDE 20 MEQ/15 ML UDC PO SCH ×2 (06:23→08:36)
[2017-04-03] MEDS: SODIUM CHLORIDE FLUSH 0.9% 10 ML SYRINGE IVP SCH ×3 (06:27→22:13)
[2017-04-03 08:10] LABS: BASOPHILS # (AUTO) 0.1 10^3/uL (0.0-0.1); BASOPHILS % (AUTO) 0.2 %; HGB - HEMOGLOBIN 12.8 g/dL (12.0-16.0); LYMPHOCYTES # (AUTO) 1.2 10^3/uL (1.5-3.5); LYMPHOCYTES % (AUTO) 3.9 %; MEAN CORPUSCULAR HEMOGLOBIN 32.5 pg (27.0-31.0); MEAN CORPUSCULAR HGB CONC 34.5 g/dL (32.0-36.0); MEAN CORPUSCULAR VOLUME 94.2 fL (81.0-99.0); MEAN PLATELET VOLUME 7.6 fL (7.9-10.8); MONOCYTES # (AUTO) 0.6 10^3/uL (0.0-1.0); NEUTROPHILS # (AUTO) 29.2 10^3/uL (1.5-6.6); NEUTROPHILS % (AUTO) 93.9 %; PLT - PLATELET COUNT 215 10^3/uL (130-450); RED BLOOD COUNT 3.94 10^6/uL (4.20-5.40); WHITE BLOOD COUNT 31.1 x10^3/uL (4.8-10.8)
[2017-04-03 08:28] LABS: PLATELET ESTIMATE, MANUAL NORMAL (130-450,000) (NORMAL); RBC MORPHOLOGY (MULTIPLE) NORMAL APPEARANCE (NORMAL)
--- NOTE | 2017-04-03 08:39 | PROVIDER PROGRESS NOTE ---
Subjective - Prog Note Date Prog Note Date: 04/03/17 Prog Note Time: 08:37 - Subjective Pt reports feeling: Improved Subjective: The patient does not remember much of yesterday. She cannot remember going to the ICU and she really cannot say what happened. She just remembers coming to the hospital because she felt so awful while she was at her friend's house. She had severe fever, chills, they came from out of nowhere and hit her like a ton of bricks. She is gradually become more and more alert. She is still on levo fed. This morning she was reading a magazine. She is still coughing, and chest congestion is evident. But the cough is weak and infrequent. There is no abdominal pain. No urgency frequency dysuria. No severe headache, no neck pain. No new rashes. Current Medications - Current Medications Current Medications: Active Medications Acetaminophen (Tylenol) 650 mg PO Q4HR PRN PRN Reason: Pain 1 to 4 Acetaminophen/Hydrocodone Bitart ([place] 5/325) 1 tab PO Q4HR PRN PRN Reason: Pain 5 to 7 Last Admin: 04/02/17 16:33 Dose: 1 tab Albuterol/Ipratropium (Duoneb) 3 ml INH Q4HR PRN PRN Reason: Wheezing Fluoxetine HCl (Prozac) 40 mg PO DAILY [facility] Last Admin: 04/02/17 09:06 Dose: 40 mg Furosemide (Lasix Inj 40 Mg Vial) 40 mg IVP DAILY [facility] Last Admin: 04/02/17 09:06 Dose: 40 mg Heparin Sodium (Beef Lung) () 30 - 50 unit IVP ONCE PRN PRN Reason: Central Line Protocol (<24 hr) Stop: 05/02/17 20:10 Azithromycin 500 mg/ Sodium (Chloride) 250 mls @ 250 mls/hr IV DAILY@2200 [facility] Last Infusion: 04/02/17 23:19 Dose: Infused Metronidazole (Flagyl 500 Mg/100 Ml) 500 mg in 100 mls @ 100 mls/hr IV Q6H [facility] Last Admin: 04/03/17 08:33 Dose: 100 mls/hr Ceftriaxone Sodium 2 gm/ (Sodium Chloride) 100 mls @ 200 mls/hr IV DAILY [facility] Last Infusion: 04/02/17 17:05 Dose: Infused Dopamine HCl/Dextrose (Dopamine) 800 mg in 500 mls @ 6.413 mls/hr IV .Q72H [facility] ; 2 MCG/KG/MIN PRN Reason: Protocol Last Titration: 04/03/17 07:03 Dose: 6 mcg/kg/min, 19.238 mls/hr Sodium Chloride (Normal Saline 0.9%) 500 mls @ 20 mls/hr IV .Q25H PRN PRN Reason: Central Line Protocol Last Admin: 04/02/17 20:11 Dose: 20 mls/hr Lisinopril (Zestril) 10 mg PO DAILY [facility] Last Admin: 04/02/17 09:06 Dose: 10 mg Pantoprazole Sodium (Protonix) 40 mg PO QDAC [facility] Last Admin: 04/03/17 06:22 Dose: 40 mg Polyethylene Glycol (Miralax) 17 gm PO DAILY [facility] Last Admin: 04/02/17 09:06 Dose: 17 gm Potassium Chloride () 40 meq PO DAILYWM [facility] Last Admin: 04/03/17 08:36 Dose: 40 meq Prochlorperazine Edisylate (Compazine Inj) 10 mg IVP Q6HR PRN PRN Reason: Nausea / Vomiting Last Admin: 04/02/17 08:50 Dose: 10 mg Sodium Chloride (Normal Saline Flush 0.9%) 10 ml IVP PRN PRN PRN Reason: NEEDED PER PROVIDER ORDERS Last Admin: 04/02/17 09:14 Dose: 10 ml Sodium Chloride (Normal Saline Flush 0.9%) 10 ml IVP Q8HR [facility] Last Admin: 04/03/17 06:27 Dose: 30 ml Temazepam (Restoril) 15 mg PO QPM PRN PRN Reason: Insomnia Omeprazole [PriLOSEC] 20 mg PO QDAC 09/17/12 Carvedilol [Coreg] 3.125 mg PO BID 04/02/17 Fluoxetine HCl [Prozac] 40 mg PO DAILY 04/02/17 Oxybutynin [Ditropan] 5 mg PO DAILY 04/02/17 Oxybutynin [Ditropan] 10 mg PO QPM 04/02/17 Objective - Vital Signs/Intake & Output Reviewed Vital Signs: Yes Vital Signs: Vital Signs Temp Pulse Resp BP Pulse Ox 04/03/17 08:00 37.4 C 91 18 111/65 04/03/17 07:18 93 105/55 L 04/03/17 07:14 102 H 95/59 L 04/03/17 07:06 105 H 106/60 04/03/17 07:00 109 H 16 125/70 96 04/03/17 06:52 101 H 127/57 L 04/03/17 06:43 98 91/53 L 04/03/17 06:35 94 100/50 L 04/03/17 06:31 89 77/54 L 04/03/17 06:00 90 21 78/48 L 98 04/03/17 05:56 89/54 L 04/03/17 05:50 83/47 L 04/03/17 05:36 92/47 L 04/03/17 05:30 94 84/46 L 04/03/17 05:22 88 97/57 L 04/03/17 05:10 77 101/54 L 04/03/17 05:00 82 17 96/46 L 97 04/03/17 04:56 79 89/77 L 04/03/17 04:55 83 112/83 H 04/03/17 04:46 88 91/55 L 04/03/17 04:42 85 85/47 L Intake & Output: Intake & Output 03/31/17 04/01/17 04/02/17 04/03/17 23:59 23:59 23:59 23:59 Intake Total 2005.940 1142.680 Output Total 430 336 Balance 1575.940 806.680 - Objective General Appearance: positive: No acute distress, Other (short statured, obese white female who looks older than stated age, with dyed red hair) Eyes Bilateral: positive: PERRL, EOMI ENT: positive: Other (voice hoarse, nasal) Neck: positive: No JVD, Carotid bruit. negative: Stiff neck Respiratory: positive: Chest non-tender, Wheezes, Rhonchi, Other (coarse, loud, almost audible even without stethescope. Right sounds worse than left. no egophony either lung. (CXR shows left lung pneumonia but I hear worse sound on the right).) Cardiovascular: positive: Regular rate & rhythm, Tachycardia, Systolic murmur ( harsh at RUSB>carotids). negative: Gallop/S3, Gallop/S4, Friction rub Skin: positive: Warm, Dry Extremities: positive: Full ROM, No pedal edema Neurologic/Psychiatric: positive: Oriented x3, CN's nml (2-12), Motor nml (but generalized weakness from illness) - Lab Results Fish Bones: 04/03/17 07:59 04/03/17 04:25 Other Labs: Lab Results x24hrs 04/03/17 04/03/17 04/03/17 Range/Units 07:59 04:25 04:25 WBC 31.1 H (4.8-10.8) x10^3/uL RBC 3.94 L (4.20-5.40) 10^6/uL Hgb 12.8 (12.0-16.0) g/dL Hct 37.1 (37.0-47.0) % MCV 94.2 (81.0-99.0) fL MCH 32.5 H (27.0-31.0) pg MCHC 34.5 (32.0-36.0) g/dL RDW 14.0 (12.0-15.0) % Plt Count 215 (130-450) 10^3/uL MPV 7.6 L (7.9-10.8) fL Neut # 29.2 H (1.5-6.6) 10^3/uL Lymph # 1.2 L (1.5-3.5) 10^3/uL [place] # 0.6 (0.0-1.0) 10^3/uL Eos # 0.0 (0.0-0.7) 10^3/uL Baso # 0.1 (0.0-0.1) 10^3/uL Absolute Nucleated RBC 0.00 x10^3/uL Nucleated RBC % 0.0 /100WBC Manual Slide Review Indicated WBC Morphology NORMAL APPEARANCE (NORMAL) Platelet Estimate NORMAL (130-450,000) (NORMAL) RBC Morph Micro Appear NORMAL APPEARANCE (NORMAL) Bld Gas Analysis Time Sample Site ABG pH (7.35-7.45) ABG pCO2 (34-45) mmHg ABG pO2 (80-100) mmHg ABG HCO3 (22.0-26.0) mmol/L ABG Total CO2 (21.0-29.0) MMOL/L ABG O2 Saturation (94-98) % ABG Base Excess (-2.0-3.0) mmol/L Kareem Test O2 Delivery Device O2 Liters/Min LPM Potassium 3.3 L (3.5-5.0) mmol/L Lactic Acid (0.5-2.2) mmol/L Calcium 8.5 (8.5-10.3) mg/dL Phosphorus 2.3 L (2.5-4.6) mg/dL Magnesium 2.2 (1.7-2.8) mg/dL Troponin I (<0.49) ng/mL B-Natriuretic Peptide 959 H (5-100) pg/mL Urine Color Urine Clarity (CLEAR) Urine pH (5.0-7.5) PH Ur Specific [place] (1.002-1.030) Urine Protein (NEGATIVE) mg/dL Urine Glucose (UA) (NEGATIVE) mg/dL Urine Ketones (NEGATIVE) mg/dL Urine Occult Blood (NEGATIVE) Urine Nitrite (NEGATIVE) Urine Bilirubin (NEGATIVE) Urine Urobilinogen (NORMAL) E.U./dL Ur Leukocyte Esterase (NEGATIVE) Ur Microscopic Review Urine Culture Comments 04/02/17 04/02/17 04/02/17 Range/Units 21:09 16:20 13:37 WBC (4.8-10.8) x10^3/uL RBC (4.20-5.40) 10^6/uL Hgb (12.0-16.0) g/dL Hct (37.0-47.0) % MCV (81.0-99.0) fL MCH (27.0-31.0) pg MCHC (32.0-36.0) g/dL RDW (12.0-15.0) % Plt Count (130-450) 10^3/uL MPV (7.9-10.8) fL Neut # (1.5-6.6) 10^3/uL Lymph # (1.5-3.5) 10^3/uL [place] # (0.0-1.0) 10^3/uL Eos # (0.0-0.7) 10^3/uL Baso # (0.0-0.1) 10^3/uL Absolute Nucleated RBC x10^3/uL Nucleated RBC % /100WBC Manual Slide Review WBC Morphology (NORMAL) Platelet Estimate (NORMAL) RBC Morph Micro Appear (NORMAL) Bld Gas Analysis Time Sample Site ABG pH (7.35-7.45) ABG pCO2 (34-45) mmHg ABG pO2 (80-100) mmHg ABG HCO3 (22.0-26.0) mmol/L ABG Total CO2 (21.0-29.0) MMOL/L ABG O2 Saturation (94-98) % ABG Base Excess (-2.0-3.0) mmol/L Kareem Test O2 Delivery Device O2 Liters/Min LPM Potassium (3.5-5.0) mmol/L Lactic Acid 1.7 (0.5-2.2) mmol/L Calcium (8.5-10.3) mg/dL Phosphorus (2.5-4.6) mg/dL Magnesium 2.5 (1.7-2.8) mg/dL Troponin I (<0.49) ng/mL B-Natriuretic Peptide (5-100) pg/mL Urine Color YELLOW Urine Clarity CLEAR (CLEAR) Urine pH 5.5 (5.0-7.5) PH Ur Specific [place] 1.010 (1.002-1.030) Urine Protein NEGATIVE (NEGATIVE) mg/dL Urine Glucose (UA) NEGATIVE (NEGATIVE) mg/dL Urine Ketones NEGATIVE (NEGATIVE) mg/dL Urine Occult Blood NEGATIVE (NEGATIVE) Urine Nitrite NEGATIVE (NEGATIVE) Urine Bilirubin NEGATIVE (NEGATIVE) Urine Urobilinogen 0.2 (NORMAL) (NORMAL) E.U./dL Ur Leukocyte Esterase NEGATIVE (NEGATIVE) Ur Microscopic Review NOT INDICATED Urine Culture Comments NOT INDICATED 04/02/17 04/02/17 Range/Units 11:18 06:04 WBC (4.8-10.8) x10^3/uL RBC (4.20-5.40) 10^6/uL Hgb (12.0-16.0) g/dL Hct (37.0-47.0) % MCV (81.0-99.0) fL MCH (27.0-31.0) pg MCHC (32.0-36.0) g/dL RDW (12.0-15.0) % Plt Count (130-450) 10^3/uL MPV (7.9-10.8) fL Neut # (1.5-6.6) 10^3/uL Lymph # (1.5-3.5) 10^3/uL [place] # (0.0-1.0) 10^3/uL Eos # (0.0-0.7) 10^3/uL Baso # (0.0-0.1) 10^3/uL Absolute Nucleated RBC x10^3/uL Nucleated RBC % /100WBC Manual Slide Review WBC Morphology (NORMAL) Platelet Estimate (NORMAL) RBC Morph Micro Appear (NORMAL) Bld Gas Analysis Time 1124 Sample Site LEFT RADIAL ABG pH 7.46 H (7.35-7.45) ABG pCO2 37 (34-45) mmHg ABG pO2 62 L (80-100) mmHg ABG HCO3 25.6 (22.0-26.0) mmol/L ABG Total CO2 26.7 (21.0-29.0) MMOL/L ABG O2 Saturation 93 L (94-98) % ABG Base Excess 2.0 (-2.0-3.0) mmol/L Kareem Test POSITIVE O2 Delivery Device NASAL CANNULA O2 Liters/Min 2.00 LPM Potassium (3.5-5.0) mmol/L Lactic Acid (0.5-2.2) mmol/L Calcium (8.5-10.3) mg/dL Phosphorus (2.5-4.6) mg/dL Magnesium (1.7-2.8) mg/dL Troponin I 0.05 (<0.49) ng/mL B-Natriuretic Peptide (5-100) pg/mL Urine Color Urine Clarity (CLEAR) Urine pH (5.0-7.5) PH Ur Specific Garrett (1.002-1.030) Urine Protein (NEGATIVE) mg/dL Urine Glucose (UA) (NEGATIVE) mg/dL Urine Ketones (NEGATIVE) mg/dL Urine Occult Blood (NEGATIVE) Urine Nitrite (NEGATIVE) Urine Bilirubin (NEGATIVE) Urine Urobilinogen (NORMAL) E.U./dL Ur Leukocyte Esterase (NEGATIVE) Ur Microscopic Review Urine Culture Comments - Diagnostic Imaging Diagnostic Imaging Results: positive: Final report reviewed Assessment/Plan - Problem List (1) Sepsis associated hypotension Impression: source appears to be her left lung pneumonia. MRSA nasal smear negative. Blood cultures done and pending. She is slowly responded to add an antibiotic coverage as well as Levophed. Plan: keep in ICU until off of levophed. lactic acid already done troponin negative. (2) Pneumonia Impression: history of alcohol abuse in the chart but she denies. she states minimal drinker. She smokes. at risk for strep. Here WBC continues to rise in spite of tx. Fever has resolved. Day #2 of azithromycin. Added Day #2 flagyl for aspiration and rocephin for strep. will ask pathologist to review smear to make sure I'm not missing another diagnosis. (3) Heart failure with preserved ejection fraction Impression: ECHO yesterday shows preserved LVEF but has indeterminate diastolic dysfunction. no pulmonary HTN SOB and BNP elevated. given bolus to preserve her BP already on diuretic. monitor I/O lasix to be adjuted (4) Hypokalemia Impression: ICU electrolyte protocol ordered for supplement. (5) COPD (chronic obstructive pulmonary disease) Impression: no acute exacerbaton by ABG. nebs and steroids if needed. so far none needed. Qualifiers: COPD type: COPD with acute lower respiratory infection Qualified Code(s): J44.0 - Chronic obstructive pulmonary disease with acute lower respiratory infection (5) COPD (chronic obstructive pulmonary disease) Qualifiers: Qualified Code(s): J44.0 - Chronic obstructive pulmonary disease with acute lower respiratory infection (6) Severe aortic stenosis by prior echocardiogram Impression: this will need to be addressed in the outpt setting. will need to see cardiology. LVEF still preserved but would expect to see that deteriorate in the next few months. on diuretics.
[2017-04-03] MEDS ORDERED: cefTRIAXone 2 GM VIAL IVP SCH (09:00)
[2017-04-03] MEDS: FLUoxetine 10 MG CAPSULE PO SCH (09:38)
[2017-04-03] MEDS: cefTRIAXone 2 GM in SODIUM CHLORIDE 0.9% MINIBAG 100 ML IV SCH (09:39)
[2017-04-03] MEDS: FUROSEMIDE 40 MG/4 ML VIAL IVP SCH (09:41)
--- NOTE | 2017-04-03 09:54 | XRAY Report ---
DATE OF SERVICE: FRONTAL CHEST: 04/02/2017 CLINICAL INDICATION: Line placement. FINDINGS: Frontal view of the chest demonstrates a normal cardiac silhouette. A right jugular central venous catheter terminates in the mid superior vena cava. No pneumothorax is evident. There is increasing airspace disease at the left base. No definite effusion. IMPRESSION: RIGHT INTERNAL JUGULAR LINE TERMINATING IN THE MID SUPERIOR VENA CAVA. INCREASING INFILTRATE AT THE LEFT BASE. TD: 04/03/2017 10:53
[2017-04-03] MEDS: LISINOPRIL 5 MG TABLET PO SCH (10:27)
[2017-04-03] MEDS: POLYETHYLENE GLYCOL 3350 17 GM PACKET PO SCH (10:27)
[2017-04-03] MEDS: HYDROcod/ACETAM 5/325 MG TABLET PO PRN ×2 (10:30→18:06)
[2017-04-03 17:59] LABS: CALCIUM 8.5 mg/dL (8.5-10.3); CREATININE 1.4 mg/dL (0.4-1.0)
[2017-04-03] MEDS: DOPamine 800 MG/500 ML 800 MG/500 ML BAG IV SCH (18:00)
[2017-04-03] MEDS ORDERED: NITROGLYCERIN SL 0.4 MG TABLET SL PRN (18:37)
--- NOTE | 2017-04-03 18:47 | XRAY Preliminary Report ---
Exam: XR CHEST 1 VIEW X-RAY IMPRESSION: No pneumothorax. Mild left base airspace disease appears unchanged. Mild diffuse bilatera l interstitial hazy opacities in the lungs, could represent mild pulmonary edema, appears unchanged. [facility] SITE ID: [id number]
--- NOTE | 2017-04-03 18:47 | XRAY Report ---
EXAM: CHEST RADIOGRAPHY EXAM DATE: 04/03/2017 05:43 PM. CLINICAL HISTORY: Sudden chest pain, HR 170 in ICU pt. COMPARISON: Chest 04/02/2017. TECHNIQUE: 1 view. FINDINGS: Lungs/Pleura: No pneumothorax. Mild left base airspace disease appears unchanged. Mild diffuse bilate ral interstitial hazy opacities in the lungs, could represent mild pulmonary edema, appears unchanged . Mediastinum: Within exam limitations, the cardiomediastinal contour is normal. Other: Right IJ central line with the tip at the upper one third superior vena cava. IMPRESSION: No pneumothorax. Mild left base airspace disease appears unchanged. Mild diffuse bilatera l interstitial hazy opacities in the lungs, could represent mild pulmonary edema, appears unchanged. [facility] Referring Provider Line: [phone] SITE ID: [id number]
[2017-04-03] MEDS: METOPROLOL TARTRATE 25 MG TABLET PO SCH ×2 (20:14)
[2017-04-03] MEDS: AZITHROMYCIN INJ 500 MG in SODIUM CHLORIDE 0.9% 250 ML IV SCH (22:12)
[2017-04-04] MEDS: metroNIDAZOLE 500 MG/100 ML 500 MG/100 ML BAG IV SCH ×4 (02:21→20:05)
[2017-04-04] MEDS: HYDROcod/ACETAM 5/325 MG TABLET PO PRN ×4 (04:12→21:32)
[2017-04-04] MEDS: IPRATROPIUM/ALBUTEROL 3 ML NEB INH PRN (04:25)
[2017-04-04 05:52] LABS: BASOPHILS % (AUTO) 0.3 %; EOSINOPHILS # (AUTO) 0.1 10^3/uL (0.0-0.7); EOSINOPHILS % (AUTO) 0.5 %; HGB - HEMOGLOBIN 10.9 g/dL (12.0-16.0); LYMPHOCYTES # (AUTO) 0.9 10^3/uL (1.5-3.5); LYMPHOCYTES % (AUTO) 6.5 %; MEAN CORPUSCULAR HEMOGLOBIN 32.2 pg (27.0-31.0); MEAN CORPUSCULAR HGB CONC 33.5 g/dL (32.0-36.0); MONOCYTES # (AUTO) 0.4 10^3/uL (0.0-1.0); MONOCYTES % (AUTO) 2.5 %; NEUTROPHILS # (AUTO) 12.9 10^3/uL (1.5-6.6); NEUTROPHILS % (AUTO) 90.2 %; PLT - PLATELET COUNT 183 10^3/uL (130-450); RED BLOOD COUNT 3.39 10^6/uL (4.20-5.40); RED CELL DISTRIBUTION WIDTH 13.9 % (12.0-15.0); WHITE BLOOD COUNT 14.3 x10^3/uL (4.8-10.8)
[2017-04-04] MEDS: SODIUM CHLORIDE FLUSH 0.9% 10 ML SYRINGE IVP SCH ×4 (06:00→22:12)
[2017-04-04 06:04] LABS: MAGNESIUM 1.6 mg/dL (1.7-2.8); PHOSPHORUS 2.5 mg/dL (2.5-4.6)
[2017-04-04] MEDS: PANTOPRAZOLE 40 MG TABLET PO SCH (06:40)
[2017-04-04 06:51] LABS: ALBUMIN 2.7 g/dL (3.2-5.5); ALBUMIN/GLOBULIN RATIO 0.8 (1.0-2.2); ALKALINE PHOSPHATASE 57 IU/L (42-121); ALT ALANINE AMINOTRANSFERASE < 10 IU/L (10-60); AST ASPARTATE AMINOTRANSFERASE 15 IU/L (10-42); BILIRUBIN,TOTAL < 0.2 mg/dL (0.2-1.0); BUN - BLOOD UREA NITROGEN 34 mg/dL (6-20); CALCIUM 8.4 mg/dL (8.5-10.3); CARBON DIOXIDE - CO2 24 mmol/L (21-32); CHLORIDE 106 mmol/L (101-111); CREATININE 1.3 mg/dL (0.4-1.0); GFR - MDRD 40 (>89); GLUCOSE 156 mg/dL (70-100); SODIUM 137 mmol/L (135-145); TOTAL PROTEIN 6.3 g/dL (6.7-8.2)
[2017-04-04] MEDS: FUROSEMIDE 40 MG/4 ML VIAL IVP SCH (08:11)
[2017-04-04] MEDS: POLYETHYLENE GLYCOL 3350 17 GM PACKET PO SCH (08:12)
[2017-04-04] MEDS: MAGNESIUM OXIDE 400 MG TABLET PO SCH ×2 (08:35→14:05)
[2017-04-04] MEDS: POTASSIUM CHLORIDE 20 MEQ/15 ML UDC PO SCH (08:35)
[2017-04-04] MEDS: FLUoxetine 10 MG CAPSULE PO SCH (08:36)
[2017-04-04] MEDS: LISINOPRIL 5 MG TABLET PO SCH (08:36)
[2017-04-04] MEDS: METOPROLOL TARTRATE 25 MG TABLET PO SCH ×2 (08:36→21:32)
--- NOTE | 2017-04-04 08:37 | PROVIDER PROGRESS NOTE ---
Subjective - Prog Note Date Prog Note Date: 04/04/17 Prog Note Time: 08:37 - Subjective Subjective: she is not happy with me. answers are short and terse. reaction to my questions about planning for the future: who will take care of her when she can't live alone. she states will always live alone. I impressed on her that may not happen and IF she needed help what would she do. She doesn't want to think about it. I did ask if she had any questions about her Aortic Stenosis. She is amenable to getting evaluation and treatment. Current Medications - Current Medications Current Medications: Active Medications Acetaminophen (Tylenol) 650 mg PO Q4HR PRN PRN Reason: Pain 1 to 4 Acetaminophen/Hydrocodone Bitart ([place] 5/325) 1 tab PO Q4HR PRN PRN Reason: Pain 5 to 7 Last Admin: 04/04/17 04:12 Dose: 1 tab Albuterol/Ipratropium (Duoneb) 3 ml INH Q4HR PRN PRN Reason: Wheezing Last Admin: 04/04/17 04:25 Dose: 3 ml Fluoxetine HCl (Prozac) 40 mg PO DAILY [facility] Last Admin: 04/04/17 08:36 Dose: 40 mg Furosemide (Lasix Inj 40 Mg Vial) 40 mg IVP DAILY [facility] Last Admin: 04/04/17 08:11 Dose: 40 mg Heparin Sodium (Beef Lung) () 30 - 50 unit IVP ONCE PRN PRN Reason: Central Line Protocol (<24 hr) Stop: 05/02/17 20:10 Last Admin: 04/04/17 06:02 Dose: 50 unit Azithromycin 500 mg/ Sodium (Chloride) 250 mls @ 250 mls/hr IV DAILY@2200 [facility] Last Infusion: 04/04/17 00:06 Dose: Infused Metronidazole (Flagyl 500 Mg/100 Ml) 500 mg in 100 mls @ 100 mls/hr IV Q6H [facility] Last Infusion: 04/04/17 08:30 Dose: Infused Ceftriaxone Sodium 2 gm/ (Sodium Chloride) 100 mls @ 200 mls/hr IV DAILY [facility] Last Infusion: 04/03/17 10:10 Dose: Infused Dopamine HCl/Dextrose (Dopamine) 800 mg in 500 mls @ 6.413 mls/hr IV .Q72H [facility] ; 2 MCG/KG/MIN PRN Reason: Protocol Last Titration: 04/04/17 00:10 Dose: 0 mcg/kg/min, 0 mls/hr Sodium Chloride (Normal Saline 0.9%) 500 mls @ 20 mls/hr IV .Q25H PRN PRN Reason: Central Line Protocol Last Infusion: 04/04/17 06:01 Dose: Infused Lisinopril (Zestril) 10 mg PO DAILY [facility] Last Admin: 04/04/17 08:36 Dose: 10 mg Magnesium Oxide (Mag Ox) 400 mg PO Q6H [facility] PRN Reason: Protocol Stop: 04/04/17 14:01 Last Admin: 04/04/17 08:35 Dose: 400 mg Metoprolol Tartrate (Lopressor) 25 mg PO BID [facility] Last Admin: 04/04/17 08:36 Dose: 25 mg Nitroglycerin (Nitrostat) 0.4 mg SL Q5MIN PRN PRN Reason: Chest Pain Pantoprazole Sodium (Protonix) 40 mg PO QDAC [facility] Last Admin: 04/04/17 06:40 Dose: 40 mg Polyethylene Glycol (Miralax) 17 gm PO DAILY [facility] Last Admin: 04/04/17 08:12 Dose: Not Given Potassium Chloride () 40 meq PO DAILYWM [facility] Last Admin: 04/04/17 08:35 Dose: 40 meq Prochlorperazine Edisylate (Compazine Inj) 10 mg IVP Q6HR PRN PRN Reason: Nausea / Vomiting Last Admin: 04/02/17 08:50 Dose: 10 mg Sodium Chloride (Normal Saline Flush 0.9%) 10 ml IVP PRN PRN PRN Reason: NEEDED PER PROVIDER ORDERS Last Admin: 04/02/17 09:14 Dose: 10 ml Sodium Chloride (Normal Saline Flush 0.9%) 10 ml IVP Q8HR [facility] Last Admin: 04/04/17 06:00 Dose: 10 ml Temazepam (Restoril) 15 mg PO QPM PRN PRN Reason: Insomnia Omeprazole [PriLOSEC] 20 mg PO QDAC 09/17/12 Carvedilol [Coreg] 3.125 mg PO BID 04/02/17 Fluoxetine HCl [Prozac] 40 mg PO DAILY 04/02/17 Oxybutynin [Ditropan] 5 mg PO DAILY 04/02/17 Oxybutynin [Ditropan] 10 mg PO QPM 04/02/17 Objective - Vital Signs/Intake & Output Reviewed Vital Signs: Yes Vital Signs: Vital Signs Pulse Pulse Resp BP BP Pulse Ox 04/04/17 08:36 129/89 H 04/04/17 08:00 79 14 129/89 H 99 04/04/17 07:10 65 19 04/04/17 07:00 70 20 102/82 H 99 04/04/17 06:00 72 16 90/65 93 04/04/17 05:00 77 17 100/69 95 Intake & Output: Intake & Output 04/01/17 04/02/17 04/03/17 04/04/17 23:59 23:59 23:59 23:59 Intake Total 2005.940 4178.075 600.508 Output Total 430 1811 450 Balance 7391.544 4716.075 150.508 - Objective General Appearance: positive: No acute distress, Alert Eyes Bilateral: positive: PERRL, EOMI ENT: positive: Other (she does have nasal congestion with occ runny nose) Neck: positive: No JVD. negative: Stiff neck, Carotid bruit (but does have radiated murmur) Respiratory: positive: Chest non-tender, Wheezes (scant), Rhonchi (loud but better than yesterday) Cardiovascular: positive: Regular rate & rhythm, Systolic murmur, Other (Mild hypotension into the 90's systolic at times. Off of dopamine). negative: Gallop /S4, Friction rub Abdomen: positive: Non-tender, No organomegaly, Nml bowel sounds, No distention Skin: positive: Warm, Dry Extremities: positive: Non-tender, Pedal edema (minimal). negative: Calf tenderness, Clarence's sign/cords Neurologic/Psychiatric: positive: Oriented x3, CN's nml (2-12), Motor nml (able to get up to bedside commode), Weakness - Lab Results Fish Bones: 04/04/17 05:30 04/04/17 05:30 Other Labs: Lab Results x24hrs 04/04/17 04/04/17 04/04/17 Range/Units 05:30 05:30 05:30 WBC 14.3 H (4.8-10.8) x10^3/uL RBC 3.39 L (4.20-5.40) 10^6/uL Hgb 10.9 L (12.0-16.0) g/dL Hct 32.6 L (37.0-47.0) % MCV 96.0 (81.0-99.0) fL MCH 32.2 H (27.0-31.0) pg MCHC 33.5 (32.0-36.0) g/dL RDW 13.9 (12.0-15.0) % Plt Count 183 (130-450) 10^3/uL MPV 8.0 (7.9-10.8) fL Neut # 12.9 H (1.5-6.6) 10^3/uL Lymph # 0.9 L (1.5-3.5) 10^3/uL Stephens # 0.4 (0.0-1.0) 10^3/uL Eos # 0.1 (0.0-0.7) 10^3/uL Baso # 0.0 (0.0-0.1) 10^3/uL Absolute Nucleated RBC 0.00 x10^3/uL Nucleated RBC % 0.0 /100WBC Sodium 137 (135-145) mmol/L Potassium 3.7 (3.5-5.0) mmol/L Chloride 106 (101-111) mmol/L Carbon Dioxide 24 (21-32) mmol/L Anion Gap 7.0 (6-13) BUN 34 H (6-20) mg/dL Creatinine 1.3 H (0.4-1.0) mg/dL Estimated GFR (MDRD) 40 L (>89) Glucose 156 H (70-100) mg/dL Calcium 8.4 L (8.5-10.3) mg/dL Ionized Calcium NO Phosphorus 2.5 (2.5-4.6) mg/dL Magnesium 1.6 L (1.7-2.8) mg/dL Total Bilirubin < 0.2 L (0.2-1.0) mg/dL AST 15 (10-42) IU/L ALT < 10 L (10-60) IU/L Alkaline Phosphatase 57 (42-121) IU/L Troponin I (<0.49) ng/mL B-Natriuretic Peptide (5-100) pg/mL Total Protein 6.3 L (6.7-8.2) g/dL Albumin 2.7 L (3.2-5.5) g/dL Globulin 3.6 (2.1-4.2) g/dL Albumin/Globulin Ratio 0.8 L (1.0-2.2) 04/04/17 04/03/17 04/03/17 Range/Units 05:30 17:43 17:43 WBC (4.8-10.8) x10^3/uL RBC (4.20-5.40) 10^6/uL Hgb (12.0-16.0) g/dL Hct (37.0-47.0) % MCV (81.0-99.0) fL MCH (27.0-31.0) pg MCHC (32.0-36.0) g/dL RDW (12.0-15.0) % Plt Count (130-450) 10^3/uL MPV (7.9-10.8) fL Neut # (1.5-6.6) 10^3/uL Lymph # (1.5-3.5) 10^3/uL Stephens # (0.0-1.0) 10^3/uL Eos # (0.0-0.7) 10^3/uL Baso # (0.0-0.1) 10^3/uL Absolute Nucleated RBC x10^3/uL Nucleated RBC % /100WBC Sodium 135 (135-145) mmol/L Potassium 3.9 (3.5-5.0) mmol/L Chloride 103 (101-111) mmol/L Carbon Dioxide 27 (21-32) mmol/L Anion Gap 5.0 L (6-13) BUN 31 H (6-20) mg/dL Creatinine 1.4 H (0.4-1.0) mg/dL Estimated GFR (MDRD) 37 L (>89) Glucose 118 H (70-100) mg/dL Calcium 8.5 (8.5-10.3) mg/dL Ionized Calcium Phosphorus (2.5-4.6) mg/dL Magnesium (1.7-2.8) mg/dL Total Bilirubin (0.2-1.0) mg/dL AST (10-42) IU/L ALT (10-60) IU/L Alkaline Phosphatase (42-121) IU/L Troponin I 0.04 (<0.49) ng/mL B-Natriuretic Peptide 283 H (5-100) pg/mL Total Protein (6.7-8.2) g/dL Albumin (3.2-5.5) g/dL Globulin (2.1-4.2) g/dL Albumin/Globulin Ratio (1.0-2.2) Assessment/Plan - Problem List (1) Sepsis associated hypotension Impression: RESOLVED. source appears to be her left lung pneumonia. presented as myalgias and fever sudden in onset. then admitted and after 12-18 hours, went into sepsis with hypotension. lactic acid was nml, troponin negative. CXR stable. Was on dopamine until this morning. MRSA nasal smear negative. Blood cultures done and pending. She has slowly responded to expanded antibiotic coverage as well as Levophed. Plan: transfer [facility] now that off of levophed with change in vital parameters, etc Will have PT/OT eval to assess her weakness after being in the ICU (2) Pneumonia Impression: history of alcohol abuse in the chart but she denies. she states minimal drinker. She smokes. at risk for strep. Here WBC continued to rise in spite of tx. Fever has resolved. WBC now dropping today for the first time. Day #3 of azithromycin. Added Day #3 flagyl for aspiration and rocephin for strep. I asked pathologist to review smear yesterday to make sure I'm not missing another diagnosis for the WBC of 32K. (3) Heart failure with preserved ejection fraction Impression: ECHO this admission shows preserved LVEF but has indeterminate diastolic dysfunction. final report with mild pulmonary HTN SOB and BNP elevated. given bolus to preserve her BP when she went to ICU. BNP was up to 1100's and now 200's today already on diuretic. Not hypoxic and on room air. monitor I/O lasix to be adjusted if needed. I am watching creatinine and it is stable and down to 1.3 from 1.4 (4) Hypokalemia Impression: ICU electrolyte protocol ordered for supplement. Will monitor more closely now that being transferred out of ICU. (5) COPD (chronic obstructive pulmonary disease) Impression: no acute exacerbaton by ABG. nebs and steroids if needed. so far none needed. Qualifiers: COPD type: COPD with acute lower respiratory infection Qualified Code(s): J44.0 - Chronic obstructive pulmonary disease with acute lower respiratory infection (6) Severe aortic stenosis by prior echocardiogram Impression: this will need to be addressed in the outpt setting. will need to see cardiology. LVEF still preserved but would expect to see that deteriorate in the next few months. on diuretics. Would recommend referral to to see if she is a TAVR candidate. I have already spoken to her most recent PCP TOBY Mejia on [facility] on [address] and updated him on her progress.
[2017-04-04] MEDS: cefTRIAXone 2 GM in SODIUM CHLORIDE 0.9% MINIBAG 100 ML IV SCH (08:40)
[2017-04-04] MEDS: SODIUM CHLORIDE FLUSH 0.9% 10 ML SYRINGE IVP PRN ×2 (20:06→22:12)
[2017-04-04] MEDS ORDERED: SODIUM CHLORIDE 0.9% 100ML 0 ML IV ONE (20:07)
[2017-04-04] MEDS: AZITHROMYCIN INJ 500 MG in SODIUM CHLORIDE 0.9% 250 ML IV SCH (22:20)
[2017-04-04] MEDS: SACCHAROMYCES BOULARDII 250 MG CAPSULE PO SCH (23:08)
[2017-04-05] MEDS: metroNIDAZOLE 500 MG/100 ML 500 MG/100 ML BAG IV SCH ×4 (01:57→20:40)
[2017-04-05] MEDS: NICOTINE 21 MG PATCH TOP SCH ×2 (02:03→09:39)
[2017-04-05] MEDS: HYDROcod/ACETAM 5/325 MG TABLET PO PRN ×3 (02:08→17:36)
[2017-04-05 06:05] LABS: BASOPHILS % (AUTO) 0.6 %; EOSINOPHILS # (AUTO) 0.1 10^3/uL (0.0-0.7); EOSINOPHILS % (AUTO) 1.7 %; HGB - HEMOGLOBIN 11.4 g/dL (12.0-16.0); LYMPHOCYTES # (AUTO) 0.9 10^3/uL (1.5-3.5); LYMPHOCYTES % (AUTO) 12.1 %; MEAN CORPUSCULAR HEMOGLOBIN 32.7 pg (27.0-31.0); MEAN CORPUSCULAR HGB CONC 33.9 g/dL (32.0-36.0); MEAN CORPUSCULAR VOLUME 96.3 fL (81.0-99.0); MEAN PLATELET VOLUME 8.2 fL (7.9-10.8); MONOCYTES # (AUTO) 0.4 10^3/uL (0.0-1.0); MONOCYTES % (AUTO) 5.2 %; NEUTROPHILS # (AUTO) 6.3 10^3/uL (1.5-6.6); NEUTROPHILS % (AUTO) 80.4 %; PLT - PLATELET COUNT 211 10^3/uL (130-450); RED BLOOD COUNT 3.49 10^6/uL (4.20-5.40); RED CELL DISTRIBUTION WIDTH 14.1 % (12.0-15.0); WHITE BLOOD COUNT 7.8 x10^3/uL (4.8-10.8)
[2017-04-05] MEDS: SODIUM CHLORIDE FLUSH 0.9% 10 ML SYRINGE IVP SCH ×2 (06:09→20:40)
[2017-04-05] MEDS: SODIUM CHLORIDE FLUSH 0.9% 10 ML SYRINGE IVP PRN ×2 (06:09→09:39)
[2017-04-05] MEDS: PANTOPRAZOLE 40 MG TABLET PO SCH (06:12)
[2017-04-05 06:14] LABS: ALBUMIN 2.9 g/dL (3.2-5.5); ALBUMIN/GLOBULIN RATIO 0.8 (1.0-2.2); ALKALINE PHOSPHATASE 55 IU/L (42-121); ALT ALANINE AMINOTRANSFERASE < 10 IU/L (10-60); AST ASPARTATE AMINOTRANSFERASE 10 IU/L (10-42); BILIRUBIN,TOTAL 0.4 mg/dL (0.2-1.0); BUN - BLOOD UREA NITROGEN 30 mg/dL (6-20); CALCIUM 8.6 mg/dL (8.5-10.3); CARBON DIOXIDE - CO2 23 mmol/L (21-32); CHLORIDE 107 mmol/L (101-111); CREATININE 0.9 mg/dL (0.4-1.0); GFR - MDRD 62 (>89); GLUCOSE 111 mg/dL (70-100); MAGNESIUM 1.5 mg/dL (1.7-2.8); SODIUM 138 mmol/L (135-145); TOTAL PROTEIN 6.4 g/dL (6.7-8.2)
[2017-04-05] MEDS: POTASSIUM CHLORIDE 20 MEQ/15 ML UDC PO SCH (09:01)
[2017-04-05] MEDS: SACCHAROMYCES BOULARDII 250 MG CAPSULE PO SCH ×2 (09:01→17:36)
--- NOTE | 2017-04-05 09:12 | PROVIDER PROGRESS NOTE ---
Subjective - Prog Note Date Prog Note Date: 04/05/17 Prog Note Time: 09:10 - Subjective Pt reports feeling: Improved Subjective: she now has nml WBC, no fever. still tired and coughs a lot. but eating. getting up to BR. No hypoxia. she wants a POLST form filled out. Current Medications - Current Medications Current Medications: Active Medications Acetaminophen (Tylenol) 650 mg PO Q4HR PRN PRN Reason: Pain 1 to 4 Acetaminophen/Hydrocodone Bitart ([place] 5/325) 1 tab PO Q4HR PRN PRN Reason: Pain 5 to 7 Last Admin: 04/05/17 06:21 Dose: 1 tab Albuterol/Ipratropium (Duoneb) 3 ml INH Q4HR PRN PRN Reason: Wheezing Last Admin: 04/04/17 04:25 Dose: 3 ml Fluoxetine HCl (Prozac) 40 mg PO DAILY [facility] Last Admin: 04/04/17 08:36 Dose: 40 mg Furosemide (Lasix Inj 40 Mg Vial) 40 mg IVP DAILY [facility] Last Admin: 04/04/17 08:11 Dose: 40 mg Heparin Sodium (Beef Lung) () 30 - 50 unit IVP ONCE PRN PRN Reason: Central Line Protocol (<24 hr) Stop: 05/02/17 20:10 Last Admin: 04/04/17 22:13 Dose: 150 unit Heparin Sodium (Beef Lung) () 30 - 50 unit IVP Q8HR [facility] Last Admin: 04/05/17 06:10 Dose: 100 unit Azithromycin 500 mg/ Sodium (Chloride) 250 mls @ 250 mls/hr IV DAILY@2200 [facility] Last Infusion: 04/04/17 23:20 Dose: Infused Metronidazole (Flagyl 500 Mg/100 Ml) 500 mg in 100 mls @ 100 mls/hr IV Q6H [facility] Last Admin: 04/05/17 09:01 Dose: 100 mls/hr Ceftriaxone Sodium 2 gm/ (Sodium Chloride) 100 mls @ 200 mls/hr IV DAILY [facility] Last Infusion: 04/04/17 09:20 Dose: Infused Lisinopril (Zestril) 10 mg PO DAILY [facility] Last Admin: 04/04/17 08:36 Dose: 10 mg Metoprolol Tartrate (Lopressor) 25 mg PO BID [facility] Last Admin: 04/04/17 21:32 Dose: Not Given Nicotine (Nicoderm) 1 patch TOP DAILY [facility] Last Admin: 04/05/17 02:03 Dose: 1 patch Nitroglycerin (Nitrostat) 0.4 mg SL Q5MIN PRN PRN Reason: Chest Pain Pantoprazole Sodium (Protonix) 40 mg PO QDAC [facility] Last Admin: 04/05/17 06:12 Dose: 40 mg Polyethylene Glycol (Miralax) 17 gm PO DAILY [facility] Last Admin: 04/04/17 08:12 Dose: Not Given Potassium Chloride () 40 meq PO DAILYWM [facility] Last Admin: 04/05/17 09:01 Dose: 40 meq Prochlorperazine Edisylate (Compazine Inj) 10 mg IVP Q6HR PRN PRN Reason: Nausea / Vomiting Last Admin: 04/02/17 08:50 Dose: 10 mg Saccharomyces Boulardii (Florastor) 250 mg PO BIDWM [facility] Last Admin: 04/05/17 09:01 Dose: 250 mg Sodium Chloride (Normal Saline Flush 0.9%) 10 ml IVP PRN PRN PRN Reason: NEEDED PER PROVIDER ORDERS Last Admin: 04/05/17 06:09 Dose: 20 ml Sodium Chloride (Normal Saline Flush 0.9%) 10 ml IVP Q8HR [facility] Last Admin: 04/05/17 06:09 Dose: 10 ml Temazepam (Restoril) 15 mg PO QPM PRN PRN Reason: Insomnia Omeprazole [PriLOSEC] 20 mg PO QDAC 09/17/12 Carvedilol [Coreg] 3.125 mg PO BID 04/02/17 Fluoxetine HCl [Prozac] 40 mg PO DAILY 04/02/17 Oxybutynin [Ditropan] 5 mg PO DAILY 04/02/17 Oxybutynin [Ditropan] 10 mg PO QPM 04/02/17 Objective - Vital Signs/Intake & Output Reviewed Vital Signs: Yes Vital Signs: Vital Signs x48h Temp Pulse Pulse Pulse Resp BP BP 04/05/17 07:52 36.8 C 65 16 130/59 L 04/05/17 07:30 66 14 04/05/17 02:30 36.7 C 65 16 110/65 Pulse Ox 04/05/17 07:52 95 04/05/17 07:30 04/05/17 02:30 98 Intake & Output: Intake & Output 04/02/17 04/03/17 04/04/17 04/05/17 23:59 23:59 23:59 23:59 Intake Total 2005.940 4178.075 1850.985 420 Output Total 430 1811 2585 875 Balance 1472.372 1254.075 -734.015 -455 - Objective General Appearance: positive: No acute distress, Alert, Other (short statured white female who looks older than stated age, nasal tone of voice, fatigued appearing, dyed red hair.) Eyes Bilateral: positive: PERRL, EOMI, Other (wearing glasses) ENT: positive: Other (still with mild post nasal drip and congestion) Neck: positive: No JVD. negative: Stiff neck, Carotid bruit (but radiated murmur) Respiratory: positive: Chest non-tender, No respiratory distress, Wheezes (not severe, more prolonged exhalation), Rhonchi (none on right today, all on left.) . negative: Rales Cardiovascular: positive: Regular rate & rhythm, Systolic murmur (loudest at RUSB>carotids.). negative: Gallop/S4, Friction rub Abdomen: positive: Non-tender, No organomegaly, Nml bowel sounds, No distention Skin: positive: Warm, Dry Extremities: positive: Full ROM, Pedal edema (mild) Neurologic/Psychiatric: positive: Oriented x3, CN's nml (2-12), Motor nml, Weakness (generalized but able to sit up from supine position, stand to walk to BR and no ataxia, respiratory distress. just exhausted when she gets back) - Lab Results Fish Bones: 04/05/17 05:27 04/05/17 05:27 Other Labs: Lab Results x24hrs 04/05/17 04/05/17 04/03/17 Range/Units 05:27 05:27 07:59 Specimen Type . WBC 7.8 (4.8-10.8) x10^3/uL RBC 3.49 L (4.20-5.40) 10^6/uL Hgb 11.4 L (12.0-16.0) g/dL Hct 33.6 L (37.0-47.0) % MCV 96.3 (81.0-99.0) fL MCH 32.7 H (27.0-31.0) pg MCHC 33.9 (32.0-36.0) g/dL RDW 14.1 (12.0-15.0) % Plt Count 211 (130-450) 10^3/uL MPV 8.2 (7.9-10.8) fL Neut # 6.3 (1.5-6.6) 10^3/uL Lymph # 0.9 L (1.5-3.5) 10^3/uL Wetzel # 0.4 (0.0-1.0) 10^3/uL Eos # 0.1 (0.0-0.7) 10^3/uL Baso # 0.0 (0.0-0.1) 10^3/uL Absolute Nucleated RBC 0.00 x10^3/uL Nucleated RBC % 0.0 /100WBC Pathologist Review SEE SEPARATE REPORT Sodium 138 (135-145) mmol/L Potassium 4.4 (3.5-5.0) mmol/L Chloride 107 (101-111) mmol/L Carbon Dioxide 23 (21-32) mmol/L Anion Gap 8.0 (6-13) BUN 30 H (6-20) mg/dL Creatinine 0.9 (0.4-1.0) mg/dL Estimated GFR (MDRD) 62 L (>89) Glucose 111 H (70-100) mg/dL Calcium 8.6 (8.5-10.3) mg/dL Ionized Calcium NO Magnesium 1.5 L (1.7-2.8) mg/dL Total Bilirubin 0.4 (0.2-1.0) mg/dL AST 10 (10-42) IU/L ALT < 10 L (10-60) IU/L Alkaline Phosphatase 55 (42-121) IU/L Total Protein 6.4 L (6.7-8.2) g/dL Albumin 2.9 L (3.2-5.5) g/dL Globulin 3.5 (2.1-4.2) g/dL Albumin/Globulin Ratio 0.8 L (1.0-2.2) Slides for Path Review PATH SLIDE REVIEW Assessment/Plan - Problem List (1) Pneumonia Impression: history of alcohol abuse in the chart but she denies. she states minimal drinker. She smokes. at risk for strep. Here WBC continued to rise in spite of tx. Fever has resolved. WBC started dropping yesterday and today it's normal for the first time Day #4 of azithromycin. Added Day #4 flagyl for aspiration and rocephin for strep. I asked pathologist to review smear 04/03 to make sure I'm not missing another diagnosis for the WBC of 32K. (2) Heart failure with preserved ejection fraction Impression: ECHO this admission shows preserved LVEF but has indeterminate diastolic dysfunction. final report with mild pulmonary HTN SOB and BNP elevated. given bolus to preserve her BP when she went to ICU. BNP was up to 1100's and then down to 283 yesterday. already on diuretic. Not hypoxic and on room air. monitored I/O show her to be negative balance for the last 2 days. lasix to be adjusted if needed. I am watching creatinine and it is now normal and down to 0.9 from 1.4 (3) Hypokalemia Impression: ICU electrolyte protocol ordered for supplement in the first few days. today 4.4 (4) COPD (chronic obstructive pulmonary disease) Impression: no acute exacerbation by ABG. nebs and steroids if needed. so far none needed. She tells me she has no craving for her cigarettes and doesn't want a patch. hopes to keep this up when she gets home and i endorsed that idea. Qualifiers: COPD type: COPD with acute lower respiratory infection Qualified Code(s): J44.0 - Chronic obstructive pulmonary disease with acute lower respiratory infection (5) Severe aortic stenosis by prior echocardiogram Impression: this will need to be addressed in the outpt setting. will need to see cardiology. LVEF still preserved but would expect to see that deteriorate in the next few months. on diuretics. Would recommend referral to to see if she is a TAVR candidate. I have already spoken to her most recent PCP TOBY Mejia on [facility] on [address] and updated him on her progress 04/04/17. (6) Sepsis associated hypotension Impression: RESOLVED. source appears to be her left lung pneumonia. presented as myalgias and fever sudden in onset. then admitted and after 12-18 hours, went into sepsis with hypotension. lactic acid was nml, troponin negative. CXR stable. Was on dopamine until this morning. MRSA nasal smear negative. Blood cultures done and pending. She has slowly responded to expanded antibiotic coverage as well as Levophed. Plan: transferred to [facility] 04/04/17 now that off of levophed with change in vital parameters, etc PT/OT eval ordered 04/04/17 to assess her weakness after being in the ICU (7) Weakness generalized Impression: PT couldn't see her because of time constraints yesterday. will have them see her today. If she passes eval, can go home tomorrow with home health Ot/PT and RN for her CHF/COPD after typing this, RN informs me that patient walked from ICU to [facility], and is up without a walk and only needs CGA so will cancel PT eval. (8) Full code status Impression: she asked that she be resuscitated if she has a cardiopulmonary arrest. However , she doesn't want to be resuscitated if she has inability to walk, talk (ie stroke residual) or if she is brain . she is wanting a trial of tube feeds if it means recovering to a state where she can walk and talk. Big picture, if she can't feed herself, walk or talk, she wants to be let go. HAZEL filled out to that effect.
[2017-04-05] MEDS: POLYETHYLENE GLYCOL 3350 17 GM PACKET PO SCH (09:37)
[2017-04-05] MEDS: METOPROLOL TARTRATE 25 MG TABLET PO SCH ×2 (09:38→20:44)
[2017-04-05] MEDS: FLUoxetine 10 MG CAPSULE PO SCH (09:38)
[2017-04-05] MEDS: LISINOPRIL 5 MG TABLET PO SCH (09:38)
[2017-04-05] MEDS: FUROSEMIDE 40 MG/4 ML VIAL IVP SCH (09:39)
[2017-04-05] MEDS: cefTRIAXone 2 GM in SODIUM CHLORIDE 0.9% MINIBAG 100 ML IV SCH (10:41)
[2017-04-05] MEDS: MAGNESIUM OXIDE 400 MG TABLET PO SCH (12:06)
[2017-04-05] MEDS: AZITHROMYCIN INJ 500 MG in SODIUM CHLORIDE 0.9% 250 ML IV SCH (22:03)
[2017-04-06] MEDS: HYDROcod/ACETAM 5/325 MG TABLET PO PRN ×3 (00:30→20:51)
[2017-04-06] MEDS: metroNIDAZOLE 500 MG/100 ML 500 MG/100 ML BAG IV SCH ×2 (02:35→08:53)
[2017-04-06] MEDS: SODIUM CHLORIDE FLUSH 0.9% 10 ML SYRINGE IVP SCH ×3 (06:40→20:40)
[2017-04-06] MEDS: PANTOPRAZOLE 40 MG TABLET PO SCH (06:44)
[2017-04-06] MEDS: SODIUM CHLORIDE FLUSH 0.9% 10 ML SYRINGE IVP PRN ×2 (06:45→08:53)
[2017-04-06 07:03] LABS: BASOPHILS # (AUTO) 0.1 10^3/uL (0.0-0.1); BASOPHILS % (AUTO) 1.4 %; EOSINOPHILS # (AUTO) 0.1 10^3/uL (0.0-0.7); EOSINOPHILS % (AUTO) 1.4 %; HGB - HEMOGLOBIN 12.5 g/dL (12.0-16.0); LYMPHOCYTES # (AUTO) 1.2 10^3/uL (1.5-3.5); MEAN CORPUSCULAR HEMOGLOBIN 32.9 pg (27.0-31.0); MEAN CORPUSCULAR HGB CONC 34.8 g/dL (32.0-36.0); MEAN CORPUSCULAR VOLUME 94.7 fL (81.0-99.0); MEAN PLATELET VOLUME 7.8 fL (7.9-10.8); MONOCYTES # (AUTO) 0.6 10^3/uL (0.0-1.0); MONOCYTES % (AUTO) 10.9 %; NEUTROPHILS # (AUTO) 3.5 10^3/uL (1.5-6.6); NEUTROPHILS % (AUTO) 64.3 %; PLT - PLATELET COUNT 241 10^3/uL (130-450); WHITE BLOOD COUNT 5.4 x10^3/uL (4.8-10.8)
[2017-04-06 07:27] LABS: ALBUMIN 3.2 g/dL (3.2-5.5); ALBUMIN/GLOBULIN RATIO 0.8 (1.0-2.2); ALKALINE PHOSPHATASE 58 IU/L (42-121); ALT ALANINE AMINOTRANSFERASE < 10 IU/L (10-60); AST ASPARTATE AMINOTRANSFERASE 15 IU/L (10-42); BILIRUBIN,TOTAL 0.4 mg/dL (0.2-1.0); BUN - BLOOD UREA NITROGEN 26 mg/dL (6-20); CALCIUM 9.1 mg/dL (8.5-10.3); CARBON DIOXIDE - CO2 23 mmol/L (21-32); CHLORIDE 101 mmol/L (101-111); CREATININE 1.1 mg/dL (0.4-1.0); GFR - MDRD 49 (>89); GLUCOSE 92 mg/dL (70-100); SODIUM 139 mmol/L (135-145); TOTAL PROTEIN 7.4 g/dL (6.7-8.2)
[2017-04-06] MEDS: IPRATROPIUM/ALBUTEROL 3 ML NEB INH PRN (07:29)
[2017-04-06] MEDS: MAGNESIUM OXIDE 400 MG TABLET PO SCH (08:52)
[2017-04-06] MEDS: SACCHAROMYCES BOULARDII 250 MG CAPSULE PO SCH ×2 (08:52→17:39)
[2017-04-06] MEDS: FLUoxetine 10 MG CAPSULE PO SCH (08:52)
[2017-04-06] MEDS: LISINOPRIL 5 MG TABLET PO SCH (08:52)
[2017-04-06] MEDS: NICOTINE 21 MG PATCH TOP SCH (08:53)
[2017-04-06] MEDS: FUROSEMIDE 40 MG/4 ML VIAL IVP SCH (08:53)
[2017-04-06] MEDS: POTASSIUM CHLORIDE 20 MEQ/15 ML UDC PO SCH (08:53)
[2017-04-06] MEDS: POLYETHYLENE GLYCOL 3350 17 GM PACKET PO SCH (09:05)
[2017-04-06] MEDS: METOPROLOL TARTRATE 25 MG TABLET PO SCH ×2 (09:09→20:39)
[2017-04-06] MEDS: cefTRIAXone 2 GM in SODIUM CHLORIDE 0.9% MINIBAG 100 ML IV SCH (10:05)
--- NOTE | 2017-04-06 11:07 | PROVIDER PROGRESS NOTE ---
Subjective - Prog Note Date Prog Note Date: 04/06/17 Prog Note Time: 11:34 - Subjective Subjective: she's tired. doesn't really want to move and feels she needs to stay another day. cough is better. eating. no fever, normal WBC and no hypoxia. denies cp, abd pain. Current Medications - Current Medications Current Medications: Active Medications Acetaminophen (Tylenol) 650 mg PO Q4HR PRN PRN Reason: Pain 1 to 4 Acetaminophen/Hydrocodone Bitart ([place] 5/325) 1 tab PO Q4HR PRN PRN Reason: Pain 5 to 7 Last Admin: 04/06/17 06:40 Dose: 1 tab Albuterol/Ipratropium (Duoneb) 3 ml INH Q4HR PRN PRN Reason: Wheezing Last Admin: 04/06/17 07:29 Dose: 3 ml Clindamycin HCl (Cleocin) 300 mg PO Q6HR [facility] Fluoxetine HCl (Prozac) 40 mg PO DAILY [facility] Last Admin: 04/06/17 08:52 Dose: 40 mg Furosemide (Lasix) 20 mg PO BIDDIURETIC [facility] Heparin Sodium (Beef Lung) () 30 - 50 unit IVP ONCE PRN PRN Reason: Central Line Protocol (<24 hr) Stop: 05/02/17 20:10 Last Admin: 04/04/17 22:13 Dose: 150 unit Heparin Sodium (Beef Lung) () 30 - 50 unit IVP Q8HR [facility] Last Admin: 04/06/17 06:46 Dose: 50 unit Lisinopril (Zestril) 10 mg PO DAILY [facility] Last Admin: 04/06/17 08:52 Dose: 10 mg Magnesium Oxide (Mag Ox) 400 mg PO DAILYWM [facility] Last Admin: 04/06/17 08:52 Dose: 400 mg Metoprolol Tartrate (Lopressor) 25 mg PO BID [facility] Last Admin: 04/06/17 09:09 Dose: 25 mg Nicotine (Nicoderm) 1 patch TOP DAILY [facility] Last Admin: 04/06/17 08:53 Dose: 1 patch Nitroglycerin (Nitrostat) 0.4 mg SL Q5MIN PRN PRN Reason: Chest Pain Pantoprazole Sodium (Protonix) 40 mg PO QDAC [facility] Last Admin: 04/06/17 06:44 Dose: 40 mg Polyethylene Glycol (Miralax) 17 gm PO DAILY [facility] Last Admin: 04/06/17 09:05 Dose: Not Given Potassium Chloride () 40 meq PO DAILYWM [facility] Last Admin: 04/06/17 08:53 Dose: 40 meq Prochlorperazine Edisylate (Compazine Inj) 10 mg IVP Q6HR PRN PRN Reason: Nausea / Vomiting Last Admin: 04/02/17 08:50 Dose: 10 mg Saccharomyces Boulardii (Florastor) 250 mg PO BIDWM [facility] Last Admin: 04/06/17 08:52 Dose: 250 mg Sodium Chloride (Normal Saline Flush 0.9%) 10 ml IVP PRN PRN PRN Reason: NEEDED PER PROVIDER ORDERS Last Admin: 04/06/17 08:53 Dose: 10 ml Sodium Chloride (Normal Saline Flush 0.9%) 10 ml IVP Q8HR [facility] Last Admin: 04/06/17 06:40 Dose: 10 ml Temazepam (Restoril) 15 mg PO QPM PRN PRN Reason: Insomnia Omeprazole [PriLOSEC] 20 mg PO QDAC 09/17/12 Carvedilol [Coreg] 3.125 mg PO BID 04/02/17 Fluoxetine HCl [Prozac] 40 mg PO DAILY 04/02/17 Oxybutynin [Ditropan] 5 mg PO DAILY 04/02/17 Oxybutynin [Ditropan] 10 mg PO QPM 04/02/17 Objective - Vital Signs/Intake & Output Reviewed Vital Signs: Yes Vital Signs: Vital Signs x48h Temp Pulse Pulse Resp BP BP Pulse Ox 04/06/17 09:09 120/63 04/06/17 08:13 36.6 C 85 18 123/63 99 04/06/17 07:43 80 16 Intake & Output: Intake & Output 04/03/17 04/04/17 04/05/17 04/06/17 23:59 23:59 23:59 23:59 Intake Total 4178.075 2178.156 1652 900 Output Total 1818 7915 4325 600 Balance 2367.075 -734.015 -1747 300 - Objective General Appearance: positive: No acute distress, Alert, Other (short statured el[place]ry female with dyed red hair, flat affect, awake, watching TV and remote in hand) Eyes Bilateral: positive: PERRL, EOMI, Other (wearing glasses) ENT: positive: Pharynx nml Neck: positive: No JVD. negative: Lymphadenopathy (R), Lymphadenopathy (L), Stiff neck, Carotid bruit Respiratory: positive: Chest non-tender, Other (BOTH lungs clear today for first time.). negative: Wheezes, Rales, Rhonchi Cardiovascular: positive: Regular rate & rhythm, Systolic murmur (radiates to carotids). negative: Gallop/S4, Friction rub Abdomen: positive: Non-tender, No organomegaly, Nml bowel sounds, No distention Skin: positive: Warm, Dry Extremities: positive: Non-tender, No pedal edema, Pedal edema Neurologic/Psychiatric: positive: Oriented x3, CN's nml (2-12), Motor nml, Weakness (and using a walker with CGA. Can go from supine to sitting with only minimal struggle and no help. Doesn't get garcia. Just tired.) - Lab Results Fish Bones: 04/06/17 06:50 04/06/17 06:50 Other Labs: Lab Results x24hrs 04/06/17 04/06/17 04/05/17 Range/Units 06:50 06:50 06:43 WBC 5.4 (4.8-10.8) x10^3/uL RBC 3.80 L (4.20-5.40) 10^6/uL Hgb 12.5 (12.0-16.0) g/dL Hct 36.0 L (37.0-47.0) % MCV 94.7 (81.0-99.0) fL MCH 32.9 H (27.0-31.0) pg MCHC 34.8 (32.0-36.0) g/dL RDW 14.0 (12.0-15.0) % Plt Count 241 (130-450) 10^3/uL MPV 7.8 L (7.9-10.8) fL Neut # 3.5 (1.5-6.6) 10^3/uL Lymph # 1.2 L (1.5-3.5) 10^3/uL [place] # 0.6 (0.0-1.0) 10^3/uL Eos # 0.1 (0.0-0.7) 10^3/uL Baso # 0.1 (0.0-0.1) 10^3/uL Absolute Nucleated RBC 0.00 x10^3/uL Nucleated RBC % 0.1 /100WBC Sodium 139 (135-145) mmol/L Potassium 4.3 (3.5-5.0) mmol/L Chloride 101 (101-111) mmol/L Carbon Dioxide 23 (21-32) mmol/L Anion Gap 15.0 H (6-13) BUN 26 H (6-20) mg/dL Creatinine 1.1 H (0.4-1.0) mg/dL Estimated GFR (MDRD) 49 L (>89) Glucose 92 (70-100) mg/dL POC Whole Bld Glucose 134 H (70 - 100) mg/dL Calcium 9.1 (8.5-10.3) mg/dL Ionized Calcium NO Total Bilirubin 0.4 (0.2-1.0) mg/dL AST 15 (10-42) IU/L ALT < 10 L (10-60) IU/L Alkaline Phosphatase 58 (42-121) IU/L Total Protein 7.4 (6.7-8.2) g/dL Albumin 3.2 (3.2-5.5) g/dL Globulin 4.2 (2.1-4.2) g/dL Albumin/Globulin Ratio 0.8 L (1.0-2.2) Assessment/Plan - Problem List (1) Pneumonia Impression: history of alcohol abuse in the chart but she denies. she states minimal drinker. She smokes. at risk for strep. but blood cultures were negative and not helpful in guiding therapy Here WBC continued to rise in spite of tx. Fever had resolved. WBC started dropping 04/04 and 12 it's normal for the first time Day #5 of azithromycin. Added Day #5 flagyl for aspiration and rocephin for strep. I asked pathologist to review smear 04/03 to make sure I'm not missing another diagnosis for the WBC of 32K. Reviews shows only inflammation or sepsis but no leukemic changes. After review for discharge, she has a normal WBC, no hypoxia but still weak. Plan for discharge in am with HomeHealth RN for monitor lungs and heart. Change to clinda for strep coverage/possible anaerobes in the outpt setting and aim for total of 10 days combined oral and IV treatment. Today would be her 96 hours of stay in a [facility]. She will need one more midnight to monitor changes of meds to make sure no fever, worsening sob. (2) Heart failure with preserved ejection fraction Impression: ECHO this admission shows preserved LVEF but has indeterminate diastolic dysfunction. final report with mild pulmonary HTN SOB and BNP elevated. given bolus to preserve her BP when she went to ICU. BNP was up to 1100's and then down to 283 already on diuretic. Not hypoxic and on room air. monitored I/O show her to be negative balance for 2 days and slightly positive this am. I am watching creatinine and it is now normal and down to 0.9 from 1.4 will switch over to po lasix today from IV lasix. (3) Hypokalemia Impression: ICU electrolyte protocol ordered for supplement in the first few days. has gone up to 4.4/4.3 (4) COPD (chronic obstructive pulmonary disease) Impression: no acute exacerbation by ABG. nebs and steroids if needed. so far none needed. She tells me she has no craving for her cigarettes and doesn't want a patch. hopes to keep this up when she gets home and i endorsed that idea. Qualifiers: COPD type: COPD with acute lower respiratory infection Qualified Code(s): J44.0 - Chronic obstructive pulmonary disease with acute lower respiratory infection (5) Severe aortic stenosis by prior echocardiogram Impression: this will need to be addressed in the outpt setting. will need to see cardiology. LVEF still preserved but would expect to see that deteriorate in the next few months. on diuretics. Would recommend referral to to see if she is a TAVR candidate. I have already spoken to her most recent PCP TOBY Mejia on [facility] on [facility] and updated him on her progress 04/04/17. (6) Sepsis associated hypotension Impression: RESOLVED. source appears to be her left lung pneumonia. presented as myalgias and fever sudden in onset. then admitted and after 12-18 hours, went into sepsis with hypotension. lactic acid was nml, troponin negative. CXR stable. Was on dopamine until early am 04/03/17 . MRSA nasal smear negative. Blood cultures done and negative. She has slowly responded to expanded antibiotic coverage as well as Levophed. Plan: transferred to [facility] 04/04/17 now that off of dopamine with change in vital parameters, etc PT/OT eval ordered 04/04/17 to assess her weakness after being in the ICU but not needed (7) Weakness generalized Impression: PT couldn't see her because of time constraints 04/04/17. will have them see her 04/05/17. If she passes eval, can go home tomorrow with home health Ot/PT and RN for her CHF/COPD after typing this, RN informs me that patient walked from ICU to med surg, and is up without a walk and only needs CGA PT eval. cancelled. I had her walk the hallway with walker and CGA. She wasn't happy with the walk. Insisting she was too tired. But I explained if she can't do it here she can't go home and needs possible SNF for rehab after all. She got up and walked. (8) Full code status Impression: she asked that she be resuscitated if she has a cardiopulmonary arrest. However , she doesn't want to be resuscitated if she has inability to walk, talk (ie stroke residual) or if she is brain . she is wanting a trial of tube feeds if it means recovering to a state where she can walk and talk. Big picture, if she can't feed herself, walk or talk, she wants to be let go. HAZEL filled out to that effect.
[2017-04-06] MEDS: FUROSEMIDE 20 MG TABLET PO SCH ×2 (12:28→14:08)
[2017-04-06] MEDS: CLINDAMYCIN 150 MG CAPSULE PO SCH ×2 (12:28→18:32)
[2017-04-07] MEDS: CLINDAMYCIN 150 MG CAPSULE PO SCH ×3 (01:06→13:06)
[2017-04-07] MEDS: HYDROcod/ACETAM 5/325 MG TABLET PO PRN ×2 (04:16→13:37)
[2017-04-07 06:23] LABS: ALBUMIN 3.5 g/dL (3.2-5.5); ALBUMIN/GLOBULIN RATIO 0.8 (1.0-2.2); ALKALINE PHOSPHATASE 64 IU/L (42-121); ALT ALANINE AMINOTRANSFERASE < 10 IU/L (10-60); AST ASPARTATE AMINOTRANSFERASE 16 IU/L (10-42); BILIRUBIN,TOTAL 0.2 mg/dL (0.2-1.0); BUN - BLOOD UREA NITROGEN 35 mg/dL (6-20); CALCIUM 9.4 mg/dL (8.5-10.3); CARBON DIOXIDE - CO2 23 mmol/L (21-32); CHLORIDE 104 mmol/L (101-111); CREATININE 1.2 mg/dL (0.4-1.0); GFR - MDRD 44 (>89); GLUCOSE 111 mg/dL (70-100); SODIUM 138 mmol/L (135-145); TOTAL PROTEIN 7.7 g/dL (6.7-8.2)
[2017-04-07] MEDS: PANTOPRAZOLE 40 MG TABLET PO SCH (07:03)
[2017-04-07] MEDS: FUROSEMIDE 20 MG TABLET PO SCH (07:03)
[2017-04-07] MEDS: SODIUM CHLORIDE FLUSH 0.9% 10 ML SYRINGE IVP SCH (07:03)
[2017-04-07 07:39] VITALS: BP 114/62
[2017-04-07] MEDS ORDERED: SODIUM CHLORIDE 0.9% 500 ML IV SCH (08:30)
[2017-04-07] MEDS: MAGNESIUM OXIDE 400 MG TABLET PO SCH (08:32)
[2017-04-07] MEDS: NICOTINE 21 MG PATCH TOP SCH (08:32)
[2017-04-07] MEDS: FLUoxetine 10 MG CAPSULE PO SCH (08:33)
[2017-04-07] MEDS: POTASSIUM CHLORIDE 20 MEQ/15 ML UDC PO SCH (08:33)
[2017-04-07] MEDS: SACCHAROMYCES BOULARDII 250 MG CAPSULE PO SCH (08:33)
[2017-04-07] MEDS: POLYETHYLENE GLYCOL 3350 17 GM PACKET PO SCH (08:35)
[2017-04-07] MEDS: LISINOPRIL 5 MG TABLET PO SCH (08:36)
[2017-04-07] MEDS: METOPROLOL TARTRATE 25 MG TABLET PO SCH (08:36)
--- NOTE | 2017-04-07 11:12 | Discharge Plan ---
Discharge Plan Disposition: Home Health Service Condition: Stable Prescriptions: Clindamycin [Cleocin] 300 mg PO Q6HR #20 capsule Furosemide [Lasix] 20 mg PO DAILY #30 tablet Lisinopril [Zestril] 10 mg PO DAILY #30 tablet Magnesium Oxide [Mag Ox] 400 mg PO DAILYWM #30 tablet Diet: Low Sodium Activity Restrictions: Activity as Tolerated Shower Restrictions: No Driving Restrictions: No Instruction Topics: Magnesium Salts capsules or tablets immediate release, Clindamycin capsules, Lisinopril tablets, Furosemide tablets Additional Instructions or Follow Up instructions: You were admitted to the hospital with body aches and chills that we found to be from pneumonia. You were very ill and developed sepsis with shock because of it. We also found you to have critical aortic stenosis. You were told 5-6 years ago about it so the latter is not a new diagnosis for you. You have slowly recovered and you do not need oxygen. But we have started you on new medicines for the congestive heart failure from aortic stenosis. Please also complete the antibiotics for the infection. I will order Home Health to see you. You will be housebound because you are still tired and can't get around much. I will have a home health nurse, physical and occupational therapy as well as social service to see you at home. They need to check your lungs, listen to your heart and have you do more activity to get you completely up on your feet again. Social Service may be able to identify ways to get you help in your home. See your primary care provider TOBY Mejia in the next week. I had already called him on last week to let him know about your admission. He knows he will need to refer you to [facility], Cardiology for the Aortic Stenosis. No Smoking: If you smoke, Please STOP! Call for help. Follow-up with: Tanner Ramos PA-C [Credentialed Staff Provider] -
[2017-04-07 13:46] LABS: CREATININE 1.3 mg/dL (0.4-1.0)
--- NOTE | 2017-04-08 09:54 | DISCHARGE SUMMARY ---
DATE OF SERVICE: Physician: Belia Orta MD DATE OF ADMISSION: 04/02/2017 DATE OF DISCHARGE: 04/07/2017 PRIMARY CARE PROVIDER: Tanner Butt PA-C DISCHARGE DIAGNOSES: 1. Sepsis-associated hypotension. 2. Pneumonia. 3. Heart failure with preserved ejection fraction. 4. Hypokalemia. 5. Chronic obstructive pulmonary disease. 6. Severe aortic stenosis by echocardiogram. 7. Generalized weakness. 8. Acute kidney insufficiency. DISCHARGE MEDICATIONS: 1. Cleocin 300 mg p.o. every 6 hours for 5 more days. 2. Lasix 20 mg daily. 3. Zestril 10 mg daily. 4. Magnesium oxide 400 mg daily. 5. Coreg 3.125 mg p.o. b.i.d. 6. Prozac 40 mg p.o. daily. 7. Prilosec 20 mg p.o. daily. 8. Ditropan 10 mg p.o. q.p.m. PRINCIPAL PROCEDURES: 1. Blood cultures no growth after 5 days. 2. MRSA by PCR nasal swab negative. 3. Chest x-ray 04/02/2017 with enlargement of cardiac silhouette, borderline pulmonary vascular congestion, a new small left medial basilar airspace disease. 4. Repeat x-ray 04/02/2017 for placement of central line shows right internal jugular line terminating in the mid superior vena cava with increasing infiltrate of the left lung base. 5. Chest x-ray 04/03/2017 showing no pneumothorax. Mid left lung base appears unchanged with mild diffuse bilateral interstitial hazy opacities in the lungs representing mild pulmonary edema that are unchanged. The left lung airspace disease is unchanged. This was done for sudden chest pain with heart rate of 170 in the ICU. 6. Echocardiogram showed severe concentric left ventricular hypertrophy with normal systolic function. Ejection fraction 60 percent, normal wall motion. Heavily calcified aortic valve with severe aortic stenosis. Valve area of 0.9 cm2. Peak velocity is 4.5 meters per second. Mean gradient 50 mmHg. Mild mitral annular calcification with mild mitral regurgitation and no stenosis. Normal right ventricular size and function. Mild pulmonary hypertension at 40 mmHg, and mild tricuspid regurgitation. HISTORY: She is a 72-year-old lady with a history of worsening body aches and chills with difficulty breathing over the last several days. She states that it was sudden in onset and hit her like a ton of bricks. It had progressed to the point where she needed to come to the emergency department because of the shortness of breath. She was found to have a small patchy infiltrate and increasing vascular markings on her chest x-ray and a BNP greater than 900. Temperature was 37.6, pulse was 101. She has normal breath sounds. She was in mild distress because of her aching. White cell count was 21,000. Random sugar was 121, potassium was 3.4. Lactic acid was 1.7. BNP was 924. She was admitted as new lung pneumonia, possible COPD exacerbation, but felt more to be with pneumonia. She was not frankly hypoxic. She was placed on empiric antibiotic therapy, transferred to medical/surgical unit. Approximately 10-12 hours later, the patient began having severe respiratory distress with increasing shortness of breath. Repeat BNP at 6 in the morning was now 1120. Blood pressure dropped to 78/48. She was transferred to the ICU. She was treated with acute respiratory failure from pneumonia. Echocardiogram was obtained and she was found to have preserved ejection fraction with critical aortic stenosis. As such she was felt to have acute respiratory failure from her pneumonia and the heart failure with preserved ejection fraction from aortic stenosis. She was put empirically on azithromycin and then Flagyl for aspiration and Rocephin for other coverage. It was unclear if this patient had a community-acquired pneumonia or aspiration. Initially, it was thought that she was an alcohol abuser, but she denied that. Said she was a minimal drinker. She is a current smoker. She was continued on this drug regimen for her entire stay. Initially, her white cell count was up to 32,000, and I asked for pathology review to make sure we were not missing a bone marrow dyscrasia. Pathology review shows normal inflammation and reaction to infection. In the ICU, she did not require intubation, but she did require dopamine to maintain her pressure. She had a short burst of SVT with a narrow complex tachycardia to 170 associated with hypokalemia and chest pain. Troponins were negative and hypokalemia was treated. SVT resolved. She did not become hypercapnic, and we did not feel that she had acute COPD exacerbation. Hypotension gradually resolved and she was able to come off pressors on 04/04/2017. She had severe generalized weakness because of her acute illness and when she was transitioned back to med/surg from ICU, we asked for PT to see her. However, she was described as walking from ICU to the floor and PT felt that they could not really offer her anything at this time. But, while on the floor, the patient tried to ambulate. She was easily tachypneic and easily short of breath but not hypoxic. Very wiped out and fatigued. I planned to discharge her on day number 4, but asked for 1 more day because of her fatigue. As such, she stayed total of 5 days. While she is able to ambulate by sitting up slowly in the bed from a supine to sitting position, and walk to the bathroom with a walker, she does it slowly and it wipes her out. She is a FULL CODE, status and asked me to please fill out a POLST form while she was here. She states that if she does become brain or suffer significant incapacity that she now needs 24/7 help for ADLs, she does not want to be kept alive. Until that happens, she would like FULL CODE status. We did talk about aortic stenosis. She shared with me that she thinks she was told she had aortic stenosis 5-6 years ago when she saw [facility] subsystems engineer for an unremembered reason. She really does not remember having followup since that time. I explained to her that it is probably now time to fix her valve. She still has maintained left ventricular ejection fraction, but symptoms of congestive heart failure. I spoke to Tanner Butt, her primary care provider before discharge. He already knows that he will need to see her in the next week for followup and will make expeditious referral to [facility] for evaluation of aortic valve repair. On the day of discharge, I noted that her creatinine had climbed. It had actually come down to normal at 0.9. I continued to diurese her and her creatinine went up to 1.3 on the day of discharge in spite of 500 mL normal saline bolus. She had been on 40 mg IV b.i.d. of Lasix. I had transitioned her to 20 mg p.o. daily and at discharge I just said 20 mg p.o. daily to avoid over diuresing. Again, she needs to see Tanner Butt in follow up and get a CBC and BMP. By the day of discharge, white cell count, which has been 32,000 was now 5.4. She is discharged in stable condition. I am asking her to please be followed up by home health because of her deconditioning, increased effort to just do simple things like get up to go to the bathroom. She is insistent that she will not go to a fdc facility and she was angry that I brought up the topic of asking what her plans were for when she could not take care of herself anymore, what would she do. I will ask for PT and OT in the home setting. I will also ask for our RN to look at her with regards to medication compliance, and listening to her lungs and make sure she does not go back into congestive heart failure or regress with her pneumonia. She lives alone. She will be homebound for the next 1 to 2 weeks because of deconditioning and need for walker to leave the house. PHYSICAL EXAMINATION: VITAL SIGNS: On discharge, she is 36.5, pulse 76 and sinus, blood pressure is 114/62, respirations 20, and 94% on room air. GENERAL: She is a short statured pudgy elderly woman with dyed red hair. Flat affect, wearing glasses, nasal tone of voice. NECK: No JVD on exam. LUNGS: Clear. HEART: Regular rate and rhythm with a harsh systolic murmur at the right upper sternal border radiating to the carotids. No right ventricular lift. ABDOMEN: A generous abdominal pannus, nontender abdomen exam with normal bowel sounds. EXTREMITIES: No pedal edema. She walks with a walker using short shuffling gait, but no ataxia. Greater than 30 minutes was spent in coordinating discharge. cc: TOBY Mejia TD: 04/08/2017 10:53
== END 2017-04-07 13:51 | disposition home health service (06) | DRG 291 ==
LOC: EDUNIT# → SUPCPDRO 02:07 → ED 02:07 → MS2 04:48 → ICU 13:52 → MS2 04-04 13:59
PROVIDERS: ADMIT Hospitalist; ATTEND Specialist
PROC: 02HV33Z Insertion of Infusion Device into Superior Vena Cava, Percutaneous Approach (ICD-10-PCS; principal; 2017-04-02)
DX: J18.1 Lobar pneumonia, unspecified organism (principal); I11.0 Hypertensive heart disease with heart failure; J18.9 Pneumonia, unspecified organism; I50.9 Heart failure, unspecified; F17.200 Nicotine dependence, unspecified, uncomplicated; A41.9 Sepsis, unspecified organism; R65.21 Severe sepsis with septic shock; J96.01 Acute respiratory failure with hypoxia; J44.0 Chronic obstructive pulmonary disease with (acute) lower respiratory infection; I47.1 Supraventricular tachycardia; N28.9 Disorder of kidney and ureter, unspecified; I50.30 Unspecified diastolic (congestive) heart failure; E87.6 Hypokalemia; I35.0 Nonrheumatic aortic (valve) stenosis; I27.22 Pulmonary hypertension due to left heart disease; F17.210 Nicotine dependence, cigarettes, uncomplicated; K21.9 Gastro-esophageal reflux disease without esophagitis; E66.9 Obesity, unspecified; Z86.73 Personal history of transient ischemic attack (TIA), and cerebral infarction without residual deficits; Z86.14 Personal history of Methicillin resistant Staphylococcus aureus infection; Z68.30 Body mass index [BMI] 30.0-30.9, adult
CPT/HCPCS: 36415; 36600; 71045; 80048; 80053; 81001; 81003; 82310; 82565; 82803; 83605; 83690; 83735; 83880; 84100; 84132; 84484; 84520; 85025; 87040; 87086; 87275; 87276; 87640; 93005; 93306; 94640; 96365; 96375; 99284; 99285; 99406

== ENCOUNTER 2017-07-01 17:54 | Emergency (ER) | payer MEDICARE, MEDICAID ==
--- NOTE | 2017-07-01 18:49 | XRAY Preliminary Report ---
Exam: XR CHEST 2 VIEW X-RAY IMPRESSION: 1. No focal or acute airspace disease. [facility] SITE ID: [id number]
--- NOTE | 2017-07-01 18:49 | XRAY Report ---
EXAM: CHEST RADIOGRAPHY EXAM DATE: 07/01/2017 06:25 PM. CLINICAL HISTORY: R mid lung rhonchi. COMPARISON: 04/03/2017. TECHNIQUE: 2 views. FINDINGS: Lungs/Pleura: No focal opacities evident. No pleural effusion. No pneumothorax. Normal volumes. Mediastinum: There are findings of interval aortic valve procedure. The heart size is normal. No pulm onary edema. Other: None. IMPRESSION: 1. No focal or acute airspace disease. [facility] Referring Provider Line: [phone] SITE ID: [id number]
[2017-07-01 19:06] LABS: BASOPHILS # (AUTO) 0.1 10^3/uL (0.0-0.1); BASOPHILS % (AUTO) 2.5 %; EOSINOPHILS # (AUTO) 0.1 10^3/uL (0.0-0.7); EOSINOPHILS % (AUTO) 1.5 %; HGB - HEMOGLOBIN 11.6 g/dL (12.0-16.0); LYMPHOCYTES # (AUTO) 1.2 10^3/uL (1.5-3.5); LYMPHOCYTES % (AUTO) 22.3 %; MEAN CORPUSCULAR HEMOGLOBIN 30.6 pg (27.0-31.0); MEAN CORPUSCULAR HGB CONC 33.7 g/dL (32.0-36.0); MEAN CORPUSCULAR VOLUME 90.7 fL (81.0-99.0); MONOCYTES # (AUTO) 0.4 10^3/uL (0.0-1.0); MONOCYTES % (AUTO) 7.1 %; NEUTROPHILS # (AUTO) 3.7 10^3/uL (1.5-6.6); NEUTROPHILS % (AUTO) 66.6 %; PLT - PLATELET COUNT 376 10^3/uL (130-450); RED BLOOD COUNT 3.79 10^6/uL (4.20-5.40); RED CELL DISTRIBUTION WIDTH 13.2 % (12.0-15.0); WHITE BLOOD COUNT 5.5 x10^3/uL (4.8-10.8)
[2017-07-01 19:10] LABS: PT - PROTHROMBIN TIME 11.6 secs (9.9-12.6)
[2017-07-01 19:18] LABS: ALBUMIN 4.1 g/dL (3.2-5.5); ALBUMIN/GLOBULIN RATIO 1.1 (1.0-2.2); BILIRUBIN,TOTAL 1.1 mg/dL (0.2-1.0); CALCIUM 9.3 mg/dL (8.5-10.3); CREATININE 1.7 mg/dL (0.4-1.0); TOTAL PROTEIN 7.9 g/dL (6.7-8.2)
--- NOTE | 2017-07-01 20:11 | ED Physician Documentation ---
PD HPI DYSPNEA - Stated complaint Stated Complaint: SOA, CHEST PX - Chief complaint Chief Complaint: Resp - History obtained from History obtained from: Patient - History of Present Illness Timing - onset: Today (this afternoon) Timing - onset during: Light activity Timing - duration: Hours Timing - details: Gradual onset, Constant, Waxing and waning Pain level now: 8 Inciting event(s): Out of meds (unclear: patient says she doesn't have her meds from [facility], but see below) Improved by: Other (no ameliorating factors) - Additional information Additional information: patient left [facility] on her own volition yesterday, did not want to be there anymore , was reportedly driven home by [employer]. She says she has had mid/right chest pain for past several hours without apparent exacerbating or ameliorating factors. She says she doesn't have her medications, and that when she has called [facility] "every time I call no one answers" (per patient). she also has not contacted her PMD's office. However, when I ask her if she has medications in her purse (her purse is on the bed and when I moved it in order to perform exam , there was a sound suggestive of medications in a bottle), she takes out several medications, which comprise nearly everything on her list (she appears to be out of lisinopril; there are some, but they are in an bottle).she also has an empty fluoxetine bottle, but she says she is off of those by her doctor's recommendation). Review of Systems Constitutional: reports: Reviewed and negative Cardiac: reports: Chest pain / pressure. 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, 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 HEENT: Tonsil/Adenoidectomy - Present Medications Home Medications: Ambulatory Orders Medication Instructions Recorded Confirmed Omeprazole [PriLOSEC] 20 mg PO QDAC 09/17/12 07/01/17 Carvedilol [Coreg] 3.125 mg PO BID 04/02/17 07/01/17 Oxybutynin [Ditropan] 10 mg PO QPM 04/02/17 07/01/17 Lisinopril [Zestril] 10 mg PO DAILY #30 tablet 04/07/17 07/01/17 Magnesium Oxide [Mag Ox] 400 mg PO DAILYWM #30 tablet 04/07/17 07/01/17 Mirtazapine 30 mg PO DAILY 07/01/17 07/01/17 - Allergies Allergies/Adverse Reactions: Allergies Allergy/AdvReac Type Severity Reaction Status Date / Time Penicillins Allergy Intermediate Hives Verified 04/02/17 02:20 - Social History Does the pt smoke?: Yes Smoking Status: Current every day smoker Does the pt drink ETOH?: Yes Does the pt have substance abuse?: No - Immunizations Immunizations are current?: No Immunizations: TDAP >10years/unknown - POLST Patient has POLST: Yes POLST Status: DNR PD ED PE NORMAL - Vitals Vital signs reviewed: Yes - General General: Alert and oriented X 3, No acute distress, Well developed/nourished, Other (speaking in full sentences, NAD) - HEENT HEENT: Moist mucous membranes - Neck Neck: Supple, no meningeal sign - Cardiac Cardiac: RRR - Respiratory Respiratory: No respiratory distress, Clear bilaterally - Abdomen Abdomen: Normal bowel sounds, Soft, Non tender, Non distended - Back Back: No CVA TTP - Derm Derm: Normal color - Neuro Neuro: Alert and oriented X 3 (answers quickly and appropriately to orientation questions as well as general conversation), 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, No motor deficit, No sensory deficit, Normal speech Eye Opening: Spontaneous Motor: Obeys Commands Verbal: Oriented GCS Score: 15 PD ED PE EXPANDED - Cardiac Cardiac: Murmur Present (3/6 STEPHIE) Results - Vitals Vitals: Vital Signs - 24 hr 07/01/17 07/01/17 07/01/17 18:13 18:40 18:45 Temperature 36.2 C L Heart Rate 85 70 70 Respiratory 17 20 Rate Blood Pressure 91/66 86/50 L 91/50 L O2 Saturation 97 07/01/17 07/01/17 07/01/17 19:18 20:01 20:18 Temperature Heart Rate 60 65 77 Respiratory 14 16 17 Rate Blood Pressure 95/53 L 123/64 O2 Saturation 93 98 98 07/01/17 07/01/17 07/01/17 20:52 20:57 22:17 Temperature 36.7 C Heart Rate 74 75 69 Respiratory 14 17 14 Rate Blood Pressure 148/94 H 131/58 H O2 Saturation 98 96 96 Oxygen O2 Source [] Nasal cannula O2 Source Room air - EKG (time done) No standard instances Rate: Rate (enter#) (84) Rhythm: NSR [place]: LAD Intervals: Normal [place] QRS: Normal Ischemia: Non specific changes (V2-V3) - Labs Labs: Laboratory Tests 07/01/17 07/01/17 07/01/17 18:55 18:55 18:55 WBC 5.5 RBC 3.79 L Hgb 11.6 L Hct 34.4 L MCV 90.7 MCH 30.6 MCHC 33.7 RDW 13.2 Plt Count 376 MPV 7.0 L Neut # 3.7 Lymph # 1.2 L [place] # 0.4 Eos # 0.1 Baso # 0.1 Absolute Nucleated RBC 0.00 Nucleated RBC % 0.0 PT 11.6 INR 1.0 Sodium 134 L Potassium 3.8 Chloride 103 Carbon Dioxide 21 Anion Gap 10.0 BUN 23 H Creatinine 1.7 H Estimated GFR (MDRD) 30 L Glucose 90 Calcium 9.3 Total Bilirubin 1.1 H AST 31 ALT 19 Alkaline Phosphatase 64 Troponin I Total Protein 7.9 Albumin 4.1 Globulin 3.8 Albumin/Globulin Ratio 1.1 Lipase 12 L 07/01/17 07/01/17 18:55 21:44 WBC RBC Hgb Hct MCV MCH MCHC RDW Plt Count MPV Neut # Lymph # [place] # Eos # Baso # Absolute Nucleated RBC Nucleated RBC % PT INR Sodium Potassium Chloride Carbon Dioxide Anion Gap BUN Creatinine Estimated GFR (MDRD) Glucose Calcium Total Bilirubin AST ALT Alkaline Phosphatase Troponin I 0.14 0.12 Total Protein Albumin Globulin Albumin/Globulin Ratio Lipase - Rads (name of study) chest xray Radiology: Prelim report reviewed, See rad report PD MEDICAL DECISION MAKING - ED course Complexity details: reviewed old records, reviewed results, re-evaluated patient , considered differential, d/w patient Departure - Departure Disposition: 01 Home, Self Care Clinical Impression: Chest pain Chest pain Qualifiers: Chest pain type: unspecified Qualified Code(s): R07.9 - Chest pain, unspecified Condition: Good Instructions: ED Chest Pain Atypical Unkn Cause Follow-Up: [facility] [Provider Group] [facility] [Provider Group] (Call in the morning to arrange for next available appointment. You will need your blood pressure rechecked, to discuss your symptoms (chest pain), and to discuss your medications) Discharge Date/Time: 07/01/17 22:23
[2017-07-01 22:17] VITALS: BP 131/58
== END 2017-07-01 22:23 | disposition home or self-care (01) ==
LOC: ED 17:54
DX: R07.9 Chest pain, unspecified (principal); R06.02 Shortness of breath; R05 Cough; I11.0 Hypertensive heart disease with heart failure; I50.9 Heart failure, unspecified; J44.9 Chronic obstructive pulmonary disease, unspecified; K21.9 Gastro-esophageal reflux disease without esophagitis; Z86.73 Personal history of transient ischemic attack (TIA), and cerebral infarction without residual deficits; F17.200 Nicotine dependence, unspecified, uncomplicated
CPT/HCPCS: 36415; 71046; 80053; 83690; 84484; 85025; 85610; 93005; 99284

== ENCOUNTER 2017-08-20 13:24 | Outpatient (CLI) | payer MEDICARE, MEDICAID ==
[2017-08-20 19:14] LABS: BASOPHILS # (AUTO) 0.1 10^3/uL (0.0-0.1); BASOPHILS % (AUTO) 1.3 %; EOSINOPHILS % (AUTO) 0.6 %; HGB - HEMOGLOBIN 11.4 g/dL (12.0-16.0); LYMPHOCYTES # (AUTO) 1.3 10^3/uL (1.5-3.5); LYMPHOCYTES % (AUTO) 27.4 %; MEAN CORPUSCULAR HEMOGLOBIN 29.2 pg (27.0-31.0); MEAN CORPUSCULAR HGB CONC 32.6 g/dL (32.0-36.0); MEAN CORPUSCULAR VOLUME 89.5 fL (81.0-99.0); MEAN PLATELET VOLUME 8.3 fL (7.9-10.8); MONOCYTES # (AUTO) 0.4 10^3/uL (0.0-1.0); MONOCYTES % (AUTO) 8.1 %; NEUTROPHILS # (AUTO) 2.9 10^3/uL (1.5-6.6); NEUTROPHILS % (AUTO) 62.6 %; PLT - PLATELET COUNT 255 10^3/uL (130-450); RED BLOOD COUNT 3.91 10^6/uL (4.20-5.40); RED CELL DISTRIBUTION WIDTH 15.4 % (12.0-15.0); WHITE BLOOD COUNT 4.6 x10^3/uL (4.8-10.8)
[2017-08-20 19:30] LABS: ALBUMIN/GLOBULIN RATIO 1.1 (1.0-2.2); BILIRUBIN,TOTAL 0.6 mg/dL (0.2-1.0); CALCIUM 9.5 mg/dL (8.5-10.3); TOTAL PROTEIN 7.8 g/dL (6.7-8.2)
== END 2017-08-20 13:25 ==
LOC: LAB.N 13:24
PROVIDERS: ATTEND Physician Assistant Medical
DX: Z95.2 Presence of prosthetic heart valve (principal); I10 Essential (primary) hypertension; R06.2 Wheezing
CPT/HCPCS: 36415; 80053; 83880; 85025

== ENCOUNTER 2018-02-14 06:25 | Outpatient (CLI) | payer MEDICARE, MEDICAID | END 2018-02-14 06:26 | disposition critical access hospital (66) | LOC: EMS 06:25 | PROVIDERS: ATTEND Surgery | DX: R10.30 Lower abdominal pain, unspecified (principal); R06.00 Dyspnea, unspecified | CPT/HCPCS: A0425; A0429 ==

== ENCOUNTER 2018-02-14 06:48 | Emergency (ER) | payer MEDICARE, MEDICAID ==
[2018-02-14] MEDS ORDERED: IPRATROPIUM/ALBUTEROL 3 ML NEB INH STA (07:20)
--- NOTE | 2018-02-14 07:25 | ED Physician Documentation ---
PD HPI DYSPNEA - Stated complaint Stated Complaint: SOA - Chief complaint Chief Complaint: Resp - History obtained from History obtained from: Patient - History of Present Illness Timing - details: Waxing and waning Worsened by: Coughing Associated symptoms: Cough Similar symptoms before: Diagnosis (COPD) - Additional information Additional information: The patient is a 73-year-old female with history of COPD and heart disease, who presents with dyspnea stating, "I cannot breathe." She reports nonproductive cough, and complains of substernal chest discomfort when taking a deep breath. She seems to have difficulty quantifying the duration of her symptoms, but after long consideration she indicates it has been progressing over the past month, and is worse today. She denies fever, abdominal pain, nausea or vomiting. Review of her medical records reveals previous hospitalization for pneumonia in March 2017. Review of Systems Constitutional: denies: Fever Nose: denies: Congestion Throat: denies: Sore throat Cardiac: reports: Chest pain / pressure (Substernal chest discomfort with inspiration.). denies: Palpitations Respiratory: reports: Dyspnea, Cough GI: denies: Abdominal Pain, Nausea, Vomiting : reports: Incontinent. denies: Dysuria Skin: reports: Rash (flea bites) Musculoskeletal: reports: Other (Buttock discomfort when sitting.). 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 02/14/18 - Allergies Allergies/Adverse Reactions: Allergies Allergy/AdvReac Type Severity Reaction Status Date / Time Penicillins Allergy Intermediate Hives Verified 04/02/17 02:20 - Living Situation Living Situation: reports: Alone Living Arrangement: reports: At home - Social History Does the pt smoke?: Yes Smoking Status: Current every day smoker Does the pt drink ETOH?: Yes Does the pt have substance abuse?: No - Immunizations Immunizations are current?: No Immunizations: TDAP >10years/unknown - POLST Patient has POLST: Yes POLST Status: DNR PD ED PE NORMAL - Vitals Vital signs reviewed: Yes (Borderline hypertension initially.) - General General: Alert and oriented X 3, No acute distress, Other (Odor of alcohol on breath.) - HEENT HEENT: Atraumatic, EOMI, Pharynx benign - Neck Neck: No adenopathy, No JVD - Cardiac Cardiac: RRR, No murmur - Respiratory Respiratory: Other (Diffuse coarse breath sounds bilaterally, with expiratory wheezing.) - Abdomen Abdomen: Soft, Non tender - Female Female : Other (Erythema in the intertriginous region and inner thighs, with satellite lesions, consistent with Taya dermatitis.) - Back Back: No CVA TTP, No spinal TTP - Derm Derm: Other (Few scattered fleabites, including on the forehead and forearms.) - Extremities Extremities: No edema, No calf tenderness / cord - Neuro Neuro: Alert and oriented X 3, No motor deficit, No sensory deficit, Other (Slow speech, with apparent slow processing of information mentally.) Results - Vitals Vitals: Vital Signs - 24 hr 02/14/18 11:52 Temperature 36.3 C L Heart Rate 86 Respiratory 22 Rate Blood Pressure 154/78 H O2 Saturation 95 Oxygen O2 Source [] Nasal cannula O2 Source Room air - EKG (time done) 07:39 Rate: Rate (enter#) (61) Rhythm: NSR [place]: Normal QRS: LVH Ischemia: Normal ST segments, Q waves (in precordial leads V1-V3, consistent with previous anterior FL.) Compare to prior EKG: Unchanged from prior EKG - Labs Labs: Laboratory Tests 02/14/18 02/14/18 02/14/18 07:49 07:49 07:49 WBC 3.5 L RBC 3.86 L Hgb 11.9 L Hct 34.9 L MCV 90.4 MCH 30.7 MCHC 34.0 RDW 15.1 H Plt Count 195 MPV 7.5 L Neut # (Auto) 2.1 Lymph # (Auto) 0.9 L [place] # (Auto) 0.3 Eos # (Auto) 0.0 Baso # (Auto) 0.0 Absolute Nucleated RBC 0.00 Nucleated RBC % 0.1 Sodium 141 Potassium 3.6 Chloride 107 Carbon Dioxide 27 Anion Gap 7.0 BUN 14 Creatinine 1.2 H Estimated GFR (MDRD) 44 L Glucose 99 Calcium 8.6 Total Bilirubin 0.8 AST 20 ALT 11 Alkaline Phosphatase 57 Troponin I < 0.04 B-Natriuretic Peptide Total Protein 7.2 Albumin 3.8 Globulin 3.4 Albumin/Globulin Ratio 1.1 Lipase 30 Urine Color Urine Clarity Urine pH Ur Specific [place] Urine Protein Urine Glucose (UA) Urine Ketones Urine Occult Blood Urine Nitrite Urine Bilirubin Urine Urobilinogen Ur Leukocyte Esterase Urine RBC Urine WBC Ur Squamous Epith Cells Urine Bacteria Ur Microscopic Review Urine Culture Comments 02/14/18 02/14/18 07:49 09:33 WBC RBC Hgb Hct MCV MCH MCHC RDW Plt Count MPV Neut # (Auto) Lymph # (Auto) [place] # (Auto) Eos # (Auto) Baso # (Auto) Absolute Nucleated RBC Nucleated RBC % Sodium Potassium Chloride Carbon Dioxide Anion Gap BUN Creatinine Estimated GFR (MDRD) Glucose Calcium Total Bilirubin AST ALT Alkaline Phosphatase Troponin I B-Natriuretic Peptide 579 H Total Protein Albumin Globulin Albumin/Globulin Ratio Lipase Urine Color YELLOW Urine Clarity CLEAR Urine pH 6.5 Ur Specific [place] 1.010 Urine Protein NEGATIVE Urine Glucose (UA) NEGATIVE Urine Ketones NEGATIVE Urine Occult Blood NEGATIVE Urine Nitrite POSITIVE H Urine Bilirubin NEGATIVE Urine Urobilinogen 0.2 (NORMAL) Ur Leukocyte Esterase SMALL H Urine RBC 0-5 Urine WBC 0-3 Ur Squamous Epith Cells RARE Squamous Urine Bacteria Moderate H Ur Microscopic Review INDICATED Urine Culture Comments INDICATED - Rads (name of study) 2-view CXR Radiology: Prelim report reviewed, EMP read contemporaneously, See rad report (No acute radiographic findings.) PD MEDICAL DECISION MAKING - ED course Complexity details: reviewed old records, reviewed results, re-evaluated patient, considered differential, d/w patient ED course: The patient's presentation is most consistent with acute exacerbation of COPD. Her presentation does not suggest pneumonia, and her white blood cell count is 3.5, and chest x-ray reveals no pulmonary infiltrate. There may be a minor aspect of congestive heart failure, with an elevated BNP of 579. However there is no evidence of pulmonary edema on chest x-ray. Her presentation does not suggest pulmonary embolus. Treatment in the emergency department included administration of DuoNeb nebulizer, which improved her air movement. In addition the patient has intertriginous inflammation, consistent with candidal dermatitis. Nystatin ointment was applied, and she is being discharged with prescription for Chlortrimazole cream. I discussed with her the expected course of illness, outpatient treatment and follow-up, as well as potentially worrisome signs or symptoms that should prompt reevaluation in the emergency department. Departure - Departure Disposition: 01 Home, Self Care Clinical Impression: COPD exacerbation, Candidal dermatitis Condition: Stable Instructions: ED COPD Flare Follow-Up: Zev Mason MD [Primary Care Provider] - Prescriptions: Clotrimazole [Clotrimazole AF] 5 gm TP BID #60 cream..g. Comments: Continue using your inhaler as previously prescribed. Try to stop smoking cigarettes. Apply antifungal cream on the affected areas of your groin and inner thighs twice daily. Follow-up with your primary physician within 1 week. Call to schedule an appointment. Return to the emergency department if increasing difficulty breathing or otherwise worsening symptoms. Discharge Date/Time: 02/14/18 11:55
--- NOTE | 2018-02-14 07:54 | XRAY Report ---
Reason: dyspnea Procedure Date: 02/14/2018 Accession Number: [id number] / [id number] Procedure: XR - Chest 2 View X-Ray CPT Code: 36841 FULL RESULT: EXAM: CHEST RADIOGRAPHY EXAM DATE: 02/14/2018 07:37 AM. CLINICAL HISTORY: Dyspnea. COPD. Heart disease. COMPARISON: 07/01/2017. TECHNIQUE: 2 views. FINDINGS: Lungs/Pleura: No focal opacities evident. No pleural effusion. No pneumothorax. Normal volumes. Mediastinum: Heart size is normal. Aorta is tortuous. Aortic atherosclerosis. Aortic valve prosthesis again seen. Other: Degenerative changes of the thoracic spine and both shoulders. IMPRESSION: 1. No acute disease in the chest. RADIA
[2018-02-14 08:02] LABS: BASOPHILS % (AUTO) 0.4 %; EOSINOPHILS % (AUTO) 1.1 %; HGB - HEMOGLOBIN 11.9 g/dL (12.0-16.0); LYMPHOCYTES # (AUTO) 0.9 10^3/uL (1.5-3.5); LYMPHOCYTES % (AUTO) 26.9 %; MEAN CORPUSCULAR HEMOGLOBIN 30.7 pg (27.0-31.0); MEAN CORPUSCULAR VOLUME 90.4 fL (81.0-99.0); MEAN PLATELET VOLUME 7.5 fL (7.9-10.8); MONOCYTES # (AUTO) 0.3 10^3/uL (0.0-1.0); MONOCYTES % (AUTO) 9.8 %; NEUTROPHILS # (AUTO) 2.1 10^3/uL (1.5-6.6); NEUTROPHILS % (AUTO) 61.8 %; PLT - PLATELET COUNT 195 10^3/uL (130-450); RED BLOOD COUNT 3.86 10^6/uL (4.20-5.40); RED CELL DISTRIBUTION WIDTH 15.1 % (12.0-15.0); WHITE BLOOD COUNT 3.5 x10^3/uL (4.8-10.8)
[2018-02-14 08:13] LABS: ALBUMIN 3.8 g/dL (3.2-5.5); ALBUMIN/GLOBULIN RATIO 1.1 (1.0-2.2); BILIRUBIN,TOTAL 0.8 mg/dL (0.2-1.0); CALCIUM 8.6 mg/dL (8.5-10.3); CREATININE 1.2 mg/dL (0.4-1.0); TOTAL PROTEIN 7.2 g/dL (6.7-8.2)
[2018-02-14] MEDS ORDERED: IBUPROFEN 800 MG TABLET PO STA (08:17)
[2018-02-14] MEDS ORDERED: NYSTATIN CREAM 15 GM TUBE TOP STA (08:51)
[2018-02-14 09:36] LABS: BILIRUBIN,URINE NEGATIVE (NEGATIVE); GLUCOSE, URINE (UA) NEGATIVE (NEGATIVE); KETONES,URINE (UA) NEGATIVE (NEGATIVE); LEUKOCYTE ESTERASE, URINE SMALL (NEGATIVE); NITRITE,URINE POSITIVE (NEGATIVE); OCCULT BLOOD,URINE NEGATIVE (NEGATIVE); PH,URINE 6.5 PH (5.0-7.5); PROTEIN,URINE NEGATIVE (NEGATIVE); UROBILINOGEN,URINE 0.2 (NORMAL) E.U./dL (NORMAL)
[2018-02-14 09:41] LABS: CLARITY,URINE CLEAR (CLEAR)
[2018-02-14 09:56] LABS: BACTERIA,URINE Moderate /HPF (None Seen); RBC,URINE 0-5 /HPF (0-5); SQUAMOUS EPITHELIAL CELL,UR RARE Squamous (<= Few)
[2018-02-14 11:52] VITALS: BP 154/78
== END 2018-02-14 11:55 | disposition home or self-care (01) ==
LOC: ED 06:48
DX: J44.1 Chronic obstructive pulmonary disease with (acute) exacerbation (principal); B37.2 Candidiasis of skin and nail; S50.869A Insect bite (nonvenomous) of unspecified forearm, initial encounter; S00.86XA Insect bite (nonvenomous) of other part of head, initial encounter; I11.0 Hypertensive heart disease with heart failure; I50.9 Heart failure, unspecified; F17.200 Nicotine dependence, unspecified, uncomplicated
CPT/HCPCS: 36415; 71046; 80053; 81001; 83690; 83880; 84484; 85025; 87086; 87181; 93005; 94640; 99283; 99284; A9270; 81003

== ENCOUNTER 2018-04-05 14:39 | Outpatient (CLI) | payer MEDICARE, MEDICAID | END 2018-04-05 14:40 | disposition critical access hospital (66) | LOC: EMS 14:39 | PROVIDERS: ATTEND Surgery | DX: R06.00 Dyspnea, unspecified (principal) | CPT/HCPCS: A0425; A0427 ==

== ENCOUNTER 2018-04-05 14:55 | Emergency (ER) | payer MEDICARE, MEDICAID ==
[2018-04-05] MEDS ORDERED: MORPHINE 2 MG/ML CARPUJECT IVP STA (15:28)
--- NOTE | 2018-04-05 15:30 | ED Physician Documentation ---
PD HPI DYSPNEA - Stated complaint Stated Complaint: SOA - Chief complaint Chief Complaint: Resp - History obtained from History obtained from: Patient - History of Present Illness Timing - onset: Today (73-year-old woman with history of aortic stenosis, status post aortic valve replacement at the [facility] May of last year per her history. She does not know what the valve is made of but she does not think it is metal. She is not anticoagulated. She had sudden onset anterior chest pain and shortness of breath with headache while walking to the bus today. She has slightly increased pedal edema over baseline. She denies fevers or chills but does have some upper back pain.) Review of Systems Ten Systems: 10 systems reviewed and negative Constitutional: reports: Fatigue. denies: Fever, Chills Cardiac: reports: Chest pain / pressure, Pedal edema. denies: Palpitations, Calf pain Respiratory: reports: Dyspnea. 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 HEENT: Tonsil/Adenoidectomy - Present Medications Home Medications: Ambulatory Orders Medication Instructions Recorded Confirmed Omeprazole [PriLOSEC] 20 mg PO QDAC 09/17/12 07/01/17 Carvedilol [Coreg] 3.125 mg PO BID 04/02/17 07/01/17 Oxybutynin [Ditropan] 10 mg PO QPM 04/02/17 07/01/17 Aspirin 04/05/18 Fluoxetine HCl [Prozac] 04/05/18 - Allergies Allergies/Adverse Reactions: Allergies Allergy/AdvReac Type Severity Reaction Status Date / Time Penicillins Allergy Intermediate Hives Verified 04/02/17 02:20 - Social History Does the pt smoke?: Yes Smoking Status: Current every day smoker Does the pt drink ETOH?: Yes Does the pt have substance abuse?: No - Immunizations Immunizations are current?: No Immunizations: TDAP >10years/unknown - POLST Patient has POLST: Yes POLST Status: DNR PD ED PE NORMAL - Vitals Vital signs reviewed: Yes - General General: Alert and oriented X 3, No acute distress - HEENT HEENT: PERRL, EOMI - Neck Neck: Supple, no meningeal sign, No bony TTP - Cardiac Cardiac: RRR, Other (Soft systolic murmur) - Respiratory Respiratory: Other (Nonlabored, rhonchorous especially on the left and is diminished on the left) - Abdomen Abdomen: Soft, Non tender - Back Back: No CVA TTP, No spinal TTP - Derm Derm: Normal color, Warm and dry - Extremities Extremities: No edema, No calf tenderness / cord - Neuro Neuro: Alert and oriented X 3, Normal speech - Psych Psych: Normal mood, Normal affect Results - Vitals Vitals: Vital Signs - 24 hr 04/05/18 04/05/18 04/05/18 15:03 15:30 15:31 Temperature 36.0 C L Heart Rate 72 Respiratory 20 Rate Blood Pressure 91/63 111/76 111/76 O2 Saturation 94 04/05/18 04/05/18 15:36 18:20 Temperature 36.6 C Heart Rate 74 64 Respiratory 14 Rate Blood Pressure 127/69 O2 Saturation 97 Oxygen O2 Source [] Nasal cannula O2 Source Room air - EKG (time done) 1535 Rate: Rate (enter#) (65) Rhythm: NSR [place]: Normal Intervals: Normal [place] QRS: LVH Ischemia: Normal ST segments Computer interpretation: Agree with computer - Labs Labs: Laboratory Tests 04/05/18 04/05/18 04/05/18 15:45 15:45 15:45 WBC 3.6 L RBC 3.65 L Hgb 11.1 L Hct 33.8 L MCV 92.7 MCH 30.5 MCHC 32.9 RDW 15.6 H Plt Count 183 MPV 8.0 Neut # (Auto) 2.6 Lymph # (Auto) 0.6 L [place] # (Auto) 0.3 Eos # (Auto) 0.0 Baso # (Auto) 0.0 Absolute Nucleated RBC 0.01 Nucleated RBC % 0.2 PT 11.4 INR 1.0 VBG pH VBG pCO2 VBG pO2 VBG HCO3 VBG Total CO2 VBG O2 Saturation VBG Base Excess Sodium 139 Potassium 4.0 Chloride 110 Carbon Dioxide 24 Anion Gap 5.0 L BUN 18 Creatinine 1.2 H Estimated GFR (MDRD) 44 L Glucose 91 Lactic Acid Calcium 8.7 Total Bilirubin 0.5 AST 23 ALT 14 Alkaline Phosphatase 53 Troponin I B-Natriuretic Peptide Total Protein 6.8 Albumin 3.4 Globulin 3.4 Albumin/Globulin Ratio 1.0 Lipase 32 Ethyl Alcohol Serum Ketones 04/05/18 04/05/18 04/05/18 15:45 15:45 15:45 WBC RBC Hgb Hct MCV MCH MCHC RDW Plt Count MPV Neut # (Auto) Lymph # (Auto) [place] # (Auto) Eos # (Auto) Baso # (Auto) Absolute Nucleated RBC Nucleated RBC % PT INR VBG pH VBG pCO2 VBG pO2 VBG HCO3 VBG Total CO2 VBG O2 Saturation VBG Base Excess Sodium Potassium Chloride Carbon Dioxide Anion Gap BUN Creatinine Estimated GFR (MDRD) Glucose Lactic Acid 1.4 Calcium Total Bilirubin AST ALT Alkaline Phosphatase Troponin I 0.04 B-Natriuretic Peptide 269 H Total Protein Albumin Globulin Albumin/Globulin Ratio Lipase Ethyl Alcohol Serum Ketones 04/05/18 04/05/18 04/05/18 15:45 15:45 18:05 WBC RBC Hgb Hct MCV MCH MCHC RDW Plt Count MPV Neut # (Auto) Lymph # (Auto) [place]hea # (Auto) Eos # (Auto) Baso # (Auto) Absolute Nucleated RBC Nucleated RBC % PT INR VBG pH 7.276 L VBG pCO2 46.2 VBG pO2 40.5 VBG HCO3 21.0 L VBG Total CO2 22.4 L VBG O2 Saturation 73.2 VBG Base Excess -5.7 L Sodium Potassium Chloride Carbon Dioxide Anion Gap BUN Creatinine Estimated GFR (MDRD) Glucose Lactic Acid Calcium Total Bilirubin AST ALT Alkaline Phosphatase Troponin I 0.05 B-Natriuretic Peptide Total Protein Albumin Globulin Albumin/Globulin Ratio Lipase Ethyl Alcohol 122.0 Serum Ketones NEGATIVE 04/05/18 19:52 WBC RBC Hgb Hct MCV MCH MCHC RDW Plt Count MPV Neut # (Auto) Lymph # (Auto) [place]hea # (Auto) Eos # (Auto) Baso # (Auto) Absolute Nucleated RBC Nucleated RBC % PT INR VBG pH VBG pCO2 VBG pO2 VBG HCO3 VBG Total CO2 VBG O2 Saturation VBG Base Excess Sodium Potassium Chloride Carbon Dioxide Anion Gap BUN Creatinine Estimated GFR (MDRD) Glucose Lactic Acid Calcium Total Bilirubin AST ALT Alkaline Phosphatase Troponin I 0.04 B-Natriuretic Peptide Total Protein Albumin Globulin Albumin/Globulin Ratio Lipase Ethyl Alcohol Serum Ketones - Rads (name of study) 1v chest Radiology: EMP read contemporaneously (NAD) CTPA Radiology: EMP read contemporaneously (No PE, minimal right lower lobe secretions without pneumonia.) PD MEDICAL DECISION MAKING - ED course ED course: This is a 73-year-old woman who presents with low blood pressure and shortness of breath today. She is a history of TAVR. However there is no evidence of CHF or cardiopulmonary compromise. She was intoxicated, this was brought to my attention because she was drinking alcohol while in the department. The alcohol was seized. We contacted the [facility] where she had her aortic valve repair. They did not do a preoperative coronary angiogram as such a prolonged observation period was done in the emergency department to allow her to sober up and get serial troponins which were all negative. There is no evidence of PE on CT. Her blood pressure rebounded with IV fluids which was likely due to the alcohol. Departure - Departure Disposition: 01 Home, Self Care Clinical Impression: Chest pain Alcohol intoxication Qualifiers: Complication of substance-induced condition: uncomplicated Qualified Code(s): F10.920 - Alcohol use, unspecified with intoxication, uncomplicated Condition: Good Record reviewed to determine appropriate education?: Yes Instructions: ED Alcohol Intoxication, ED Dyspnea Shortness of Breath Comments: Avoid drinking alcohol. Your blood work is showing some evidence of liver damage and blood cell damage because of it. Return for new or worsening symptoms. Follow-up with your primary care physician.
[2018-04-05 16:01] LABS: BASOPHILS % (AUTO) 1.1 %; EOSINOPHILS % (AUTO) 1.4 %; HGB - HEMOGLOBIN 11.1 g/dL (12.0-16.0); LYMPHOCYTES # (AUTO) 0.6 10^3/uL (1.5-3.5); LYMPHOCYTES % (AUTO) 17.5 %; MEAN CORPUSCULAR HEMOGLOBIN 30.5 pg (27.0-31.0); MEAN CORPUSCULAR HGB CONC 32.9 g/dL (32.0-36.0); MEAN CORPUSCULAR VOLUME 92.7 fL (81.0-99.0); MONOCYTES # (AUTO) 0.3 10^3/uL (0.0-1.0); NEUTROPHILS # (AUTO) 2.6 10^3/uL (1.5-6.6); PLT - PLATELET COUNT 183 10^3/uL (130-450); RED BLOOD COUNT 3.65 10^6/uL (4.20-5.40); RED CELL DISTRIBUTION WIDTH 15.6 % (12.0-15.0); VBG BASE EXCESS -5.7 mmol/L (-2 - +2); VBG PCO2 46.2 mmHg (41-51); VBG PH 7.276 (7.31-7.41); VBG PO2 40.5 mmHg (25-47); VBG TOTAL CO2 22.4 mmol/L (24-29); WHITE BLOOD COUNT 3.6 x10^3/uL (4.8-10.8)
[2018-04-05 16:04] LABS: PT - PROTHROMBIN TIME 11.4 secs (9.9-12.6)
[2018-04-05 16:11] LABS: ALBUMIN 3.4 g/dL (3.2-5.5); BILIRUBIN,TOTAL 0.5 mg/dL (0.2-1.0); CALCIUM 8.7 mg/dL (8.5-10.3); CREATININE 1.2 mg/dL (0.4-1.0); TOTAL PROTEIN 6.8 g/dL (6.7-8.2)
--- NOTE | 2018-04-05 16:21 | XRAY Report ---
Reason: dyspnea Procedure Date: 04/05/2018 Accession Number: [id number] / [id number] Procedure: XR - Chest 2 View X-Ray CPT Code: 34654 FULL RESULT: EXAM: CHEST RADIOGRAPHY EXAM DATE: 04/05/2018 04:13 PM. CLINICAL HISTORY: Dyspnea. COMPARISON: 02/14/2018. TECHNIQUE: 2 views. FINDINGS: Artifact lateral view Lungs/Pleura: No focal opacities evident. No pleural effusion. No pneumothorax. Normal volumes. Mediastinum: Heart and mediastinal contours are unremarkable. Other: DJD spine. IMPRESSION: No active cardiopulmonary disease RADIA
[2018-04-05] MEDS ORDERED: IOVERSOL 320 100 ML VIAL IVP ONE ×2 (16:51→17:59)
[2018-04-05 16:56] LABS: KETONES, SERUM (ACETEST) NEGATIVE (NEGATIVE)
[2018-04-05] MEDS ORDERED: SODIUM CHLORIDE 0.9% 1,000 ML IV ONE (17:11)
--- NOTE | 2018-04-05 18:42 | CT Report ---
Reason: dyspnea Procedure Date: 04/05/2018 Accession Number: [id number] / [id number] Procedure: CT - Chest Angio (PE) CPT Code: FULL RESULT: EXAM: CT ANGIOGRAM CHEST EXAM DATE: 04/05/2018 05:05 PM. CLINICAL HISTORY: Dyspnea. COMPARISON: Same-day chest x-ray, 12/26/2014. TECHNIQUE: Routine helical imaging was performed through the chest in the pulmonary arterial phase. IV Contrast: 80 mL Optiray 320. Reconstructions: Coronal 3-D MIP reconstructions.Sagittal and coronal. In accordance with CT protocol optimization, one or more of the following dose reduction techniques were utilized for this exam: automated exposure control, adjustment of mA and/or KV based on patient size, or use of iterative reconstructive technique. FINDINGS: Pulmonary Arteries: Diagnostic quality: Adequate through the segmental arteries. No evidence for acute or chronic pulmonary emboli. RV/LV is within normal limits. There is no interventricular septal bowing. There is no reflux of contrast material in the IVC. Lungs/Pleura: No consolidation, pleural effusion or pneumothorax. There is mild dependent lower lobe atelectasis. Mild scarring in the inferior lingula. No mass. Mild central bronchial wall thickening. Mediastinum: The heart is normal in size. No lymphadenopathy. Thoracic Aorta: TAVR. No dissection. Upper Abdomen: Unremarkable. Other: None. IMPRESSION: 1. No pulmonary emboli. 2. Minimal secretions within right lower lobe airways. Mild central bronchial wall thickening. No evidence of pneumonia. [facility]
[2018-04-05 20:49] VITALS: BP 130/72
== END 2018-04-05 20:49 | disposition home or self-care (01) ==
LOC: EDUNIT# → ED 14:55
DX: R07.9 Chest pain, unspecified (principal); F10.920 Alcohol use, unspecified with intoxication, uncomplicated; R94.31 Abnormal electrocardiogram [ECG] [EKG]; F17.200 Nicotine dependence, unspecified, uncomplicated; I11.0 Hypertensive heart disease with heart failure; I50.9 Heart failure, unspecified; Z96.649 Presence of unspecified artificial hip joint; Z95.2 Presence of prosthetic heart valve
CPT/HCPCS: 36415; 71046; 71275; 80053; 82009; 82803; 83605; 83690; 83880; 84484; 85025; 85610; 87040; 93005; 96361; 96374; 99284; Q9967; 80320

== ENCOUNTER 2018-05-21 15:12 | Outpatient (CLI) | payer MEDICARE, MEDICAID | END 2018-05-21 15:13 | disposition critical access hospital (66) | LOC: EMS 15:12 | PROVIDERS: ATTEND Surgery | DX: R10.9 Unspecified abdominal pain (principal) | CPT/HCPCS: A0425; A0429 ==

== ENCOUNTER 2018-05-21 15:34 | Emergency (ER) | payer MEDICARE, MEDICAID ==
--- NOTE | 2018-05-21 15:57 | ED Physician Documentation ---
PD HPI BACK INJURY - Stated complaint Stated Complaint: BACK PX - History obtained from History obtained from: Patient - History of Present Illness Location: Other (She was moving her gonzalez size mattress a few days ago and it fell on her. She has most severe low back pain, but milder neck pain and right ankle pain. She is able to walk and bear weight. 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, 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 HEENT: Tonsil/Adenoidectomy - Present Medications Home Medications: Ambulatory Orders Medication Instructions Recorded Confirmed Omeprazole [PriLOSEC] 20 mg PO QDAC 09/17/12 05/21/18 Carvedilol [Coreg] 3.125 mg PO BID 04/02/17 05/21/18 Oxybutynin [Ditropan] 10 mg PO QPM 04/02/17 05/21/18 Aspirin 81 mg PO DAILY 04/05/18 05/21/18 Fluoxetine HCl [Prozac] 40 mg PO DAILY 04/05/18 05/21/18 Hydrocodone/Acetaminophen 1 - 2 each PO Q6H PRN #10 tablet 05/21/18 [Hydrocodon-Acetaminophen 5-325] - Allergies Allergies/Adverse Reactions: Allergies Allergy/AdvReac Type Severity Reaction Status Date / Time Penicillins Allergy Intermediate Hives Verified 05/21/18 15:44 - Social History Does the pt smoke?: Yes Smoking Status: Current every day smoker Does the pt drink ETOH?: Yes Does the pt have substance abuse?: No - Immunizations Immunizations are current?: No Immunizations: TDAP >10years/unknown - POLST Patient has POLST: Yes POLST Status: DNR PD ED PE NORMAL - Vitals Vital signs reviewed: Yes - General General: Alert and oriented X 3, No acute distress - HEENT HEENT: PERRL, EOMI - Neck Neck: Other (Very mild mid C-spine tenderness, more on the muscles in the midline) - Cardiac Cardiac: RRR, No murmur - Respiratory Respiratory: No respiratory distress, Clear bilaterally - Abdomen Abdomen: Soft, Non tender - Back Back: Other (Pretty tender around L5 The patient has equal and normal Achilles and patellar reflexes bilaterally. Normal sensation in all areas of the legs. Patient denies saddle anesthesia. Normal strength in flexion-extension at the ankles, knees, and flexion of the hips.) - Extremities Extremities: Other (Mild tenderness of the lateral malleolus of the right ankle without deformity or ecchymosis.) - Neuro Neuro: Alert and oriented X 3, Normal speech Results - Vitals Vitals: Vital Signs - 24 hr 05/21/18 15:41 Temperature 35.8 C L Heart Rate 76 Blood Pressure 103/58 L O2 Saturation 96 Oxygen O2 Source [With Activity] Nasal cannula O2 Source Room air - Rads (name of study) X-rays of the lumbar spine, cervical spine, and right ankle Radiology: EMP read contemporaneously (All with degenerative changes but no evidence of acute fractures) Departure - Departure Disposition: 01 Home, Self Care Clinical Impression: Back pain Qualifiers: Back pain location: low back pain Chronicity: acute Back pain laterality: midline Sciatica presence: without sciatica Qualified Code(s): M54.5 - Low back pain Contusion of right ankle Qualifiers: Encounter type: initial encounter Qualified Code(s): S90.01XA - Contusion of right ankle, initial encounter Injury of neck Qualifiers: Encounter type: initial encounter Qualified Code(s): S19.9XXA - Unspecified injury of neck, initial encounter Condition: Good Record reviewed to determine appropriate education?: Yes Instructions: ED Low Back Pain Injury Prescriptions: Hydrocodone/Acetaminophen [Hydrocodon-Acetaminophen 5-325] 1 - 2 each PO Q6H PRN #10 tablet PRN Reason: pain Comments: Call your doctor to arrange a follow-up appointment, make the next available appointment. In the interim, return anytime if worse or if new symptoms develop.
[2018-05-21] MEDS: HYDROcod/ACETAM 5/325 MG TABLET PO STA (15:59)
--- NOTE | 2018-05-21 17:06 | XRAY Report ---
Reason: ankle/neck/back inj Procedure Date: 05/21/2018 Accession Number: [id number] / [id number] Procedure: XR - Cervical Spine 2 View CPT Code: FULL RESULT: EXAM: CERVICAL SPINE RADIOGRAPHY. EXAM DATE: 05/21/2018 04:21 PM. CLINICAL HISTORY: Ankle, neck, and back injury. COMPARISONS: Cervical spine without 05/30/2016 12:32 PM. TECHNIQUE: 3 views. FINDINGS: Severe degenerative disk disease at C4-C5 with 3 mm anterolisthesis, similar to the prior. Moderate to severe C2-C4 facet arthropathy, left greater than right. Otherwise mild facet arthropathy in the rest of the cervical spine. Moderate degenerative disk disease at C5-C6 and C6-C7. Anterior alignment of C7-T1 is not optimally seen on the lateral view. No evidence for acute fracture. Demineralized bones. No prevertebral soft tissue swelling. IMPRESSION: 1. No evidence for acute fracture. 2. Chronic and degenerative changes as above. 3. Anterior alignment of C7-T1 is not optimally seen on the lateral view. [facility]
--- NOTE | 2018-05-21 17:09 | XRAY Report ---
Reason: ankle/neck/back inj Procedure Date: 05/21/2018 Accession Number: [id number] / [id number] Procedure: XR - Lumbar Spine 2 View CPT Code: FULL RESULT: EXAM: LUMBOSACRAL SPINE RADIOGRAPHY EXAM DATE: 05/21/2018 04:22 PM. CLINICAL HISTORY: Ankle, neck and back injury. COMPARISONS: Lumbar spine 2 view 10/06/2014 8:15 AM. TECHNIQUE: 2 views. FINDINGS: Mild anterolisthesis of L5 and S1, unchanged. Moderate L5-S1 and L4-L5 degenerative disk disease and facet arthropathy. Mild degenerative disk disease with endplate osteophytes at L3-L4 and L2-L3. Moderate L1-L2 degenerative disk disease with mild retrolisthesis, unchanged. Moderate T12-L1 degenerative disk disease, unchanged. Moderate L1 chronic appearing compression fracture deformity, unchanged. No acute fracture seen. Mild levoscoliosis of the thoracic spine. Bilateral total hip arthroplasties. Bilateral buttock soft tissue calcifications. IMPRESSION: 1. No acute fracture is seen. Chronic and degenerative changes as above. [facility]
--- NOTE | 2018-05-21 17:12 | XRAY Report ---
Reason: ankle/neck/back inj Procedure Date: 05/21/2018 Accession Number: [id number] / [id number] Procedure: XR - Ankle 3 View RT CPT Code: FULL RESULT: EXAM: RIGHT ANKLE RADIOGRAPHY EXAM DATE: 05/21/2018 04:21 PM. CLINICAL HISTORY: Ankle/neck/back injury. COMPARISON: ANKLE 3 VIEW RT 06/09/2015 11:03 AM. TECHNIQUE: 3 views. FINDINGS: No evidence for acute fracture. Diffuse ankle and lower leg soft tissue swelling. Chronic bony deformity seen at the lateral malleolus distal aspect, suspect old healed fracture deformity, unchanged. Small bone spur off the medial malleolus. No subluxation. The mortise appears intact. Focal small soft tissue calcification seen at the medial distal lower leg, unchanged. IMPRESSION: No evidence for acute fracture. Diffuse ankle and lower leg soft tissue swelling. Chronic and degenerative changes as above. [facility]
[2018-05-21 17:27] VITALS: BP 137/78
== END 2018-05-21 17:32 | disposition home or self-care (01) ==
LOC: EDUNIT# → ED 15:34
DX: M54.5 Low back pain (principal); S90.01XA Contusion of right ankle, initial encounter; S19.9XXA Unspecified injury of neck, initial encounter; W22.8XXA Striking against or struck by other objects, initial encounter; Y93.89 Activity, other specified; I11.0 Hypertensive heart disease with heart failure; I50.9 Heart failure, unspecified; Z96.649 Presence of unspecified artificial hip joint; F17.200 Nicotine dependence, unspecified, uncomplicated
CPT/HCPCS: 72040; 72100; 99283

== ENCOUNTER 2018-07-03 11:05 | Emergency (ER) | payer MEDICARE, MEDICAID ==
[2018-07-03 11:15] VITALS: BP 142/66
[2018-07-03] MEDS ORDERED: HYDROcod/ACETAM 5/325 MG TABLET PO STA (12:27)
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
== END 2018-07-03 12:39 | disposition home or self-care (01) ==
LOC: ED 11:05
DX: M62.830 Muscle spasm of back (principal); I10 Essential (primary) hypertension; F17.200 Nicotine dependence, unspecified, uncomplicated
CPT/HCPCS: 99283; A9270

== ENCOUNTER 2018-07-28 07:59 | Emergency (ER) | payer MEDICARE, MEDICAID ==
[2018-07-28 08:08] VITALS: BP 142/90
[2018-07-28] MEDS ORDERED: oxyCODONE 5 MG TABLET PO STA (08:25)
--- NOTE | 2018-07-28 08:27 | ED Physician Documentation ---
PD HPI UPPER EXT INJURY - Stated complaint Stated Complaint: R ARM INJ - Chief complaint Chief Complaint: Ext Problem - History obtained from History obtained from: Patient - History of Present Illness Location: Right, Shoulder Type of injury: Fall Where injury occurred: Home Timing - onset: How many days ago (3) Timing - duration: Days (3) Timing - details: Gradual onset Pain level max: 10 Pain level now: 10 Improved by: Rest Worsened by: Moving, Palpating Associated symptoms: Swelling, Discolored (ecchymosis). No: Weakness, Numbness, Tingling Contributing factors: No: Anticoagulated Recently seen: Not recently seen - Additonal information Additional information: Patient states that her legs gave out on her a few days ago, fell on the right shoulder. Gradually increasing pain since that time. Worse with movement and better with rest. Did not strike her head. 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 HEENT: Tonsil/Adenoidectomy - Present Medications Home Medications: Ambulatory Orders Medication Instructions Recorded Confirmed Omeprazole [PriLOSEC] 20 mg PO QDAC 09/17/12 07/03/18 Carvedilol [Coreg] 3.125 mg PO BID 04/02/17 07/03/18 Oxybutynin [Ditropan] 10 mg PO QPM 04/02/17 07/03/18 Aspirin 81 mg PO DAILY 04/05/18 07/03/18 Fluoxetine HCl [Prozac] 40 mg PO DAILY 04/05/18 07/03/18 Hydrocodone/Acetaminophen 1 - 2 each PO Q6H PRN #14 tablet 07/03/18 [Hydrocodon-Acetaminophen 5-325] Hydrocodone/Acetaminophen 1 - 2 each PO Q6H PRN #10 tablet 07/28/18 [Hydrocodon-Acetaminophen 5-325] - Allergies Allergies/Adverse Reactions: Allergies Allergy/AdvReac Type Severity Reaction Status Date / Time Penicillins Allergy Intermediate Hives Verified 07/28/18 08:08 - Social History Does the pt smoke?: Yes Smoking Status: Current every day smoker Does the pt drink ETOH?: Yes Does the pt have substance abuse?: No - Immunizations Immunizations are current?: No Immunizations: TDAP >10years/unknown - POLST Patient has POLST: Yes POLST Status: DNR PD ED PE NORMAL - Vitals Vital signs reviewed: Yes - General General: Alert and oriented X 3, No acute distress - HEENT HEENT: Moist mucous membranes - Neck Neck: Supple, no meningeal sign - Cardiac Cardiac: RRR - Respiratory Respiratory: No respiratory distress, Clear bilaterally - Derm Derm: Warm and dry - Extremities Extremities: Other (R arm - diffuse TTP over R shoulder. NVI. Limited ROM 2/2 pain.) - Neuro Neuro: Alert and oriented X 3 Results - Vitals Vitals: Vital Signs - 24 hr 07/28/18 08:06 Temperature 36.8 C Heart Rate 78 Respiratory 18 Rate Blood Pressure 142/90 H O2 Saturation 100 Oxygen O2 Source [With Activity] Nasal cannula O2 Source Room air - Rads (name of study) Right shoulder x-ray Radiology: Prelim report reviewed, EMP read contemporaneously, See rad report (No fracture or other acute osseous abnormality identified. Bones are diffusely demineralized. 2. Similar superior subluxation of the humeral head, which may be seen in the setting of chronic rotator cuff tear. No dislocation. 3. Moderate marginal osteophyte formation versus possible intra-articular loose body at the inferior margin of the humeral head. ) PD MEDICAL DECISION MAKING - ED course Complexity details: reviewed results, re-evaluated patient, considered differential, d/w patient ED course: No acute findings on x-ray. Feels better after splint application pain medica tion. We will continue supportive care and follow-up with her doctor. Will wear the sling for the next 2 to 3 days. Patient counseled regarding signs and symptoms for which I believe and urgent re-evaluation would be necessary. Patient with good understanding of and agreement to plan and is comfortable going home at this time This document was made in part using voice recognition software. While efforts are made to proofread this document, sound alike and grammatical errors may occur. Departure - Departure Disposition: 01 Home, Self Care Clinical Impression: Contusion of shoulder, right Qualifiers: Encounter type: initial encounter Qualified Code(s): S40.011A - Contusion of right shoulder, initial encounter Condition: Good Instructions: ED Contusion Upper Ext Follow-Up: Tanner Ramos PA-C [Primary Care Provider] - Within 1 week Prescriptions: Hydrocodone/Acetaminophen [Hydrocodon-Acetaminophen 5-325] 1 - 2 each PO Q6H PRN #10 tablet PRN Reason: pain Comments: This should improve over the next few days. Follow-up with your doctor for further care. Do not wear the sling for longer than 2 to 3 days. Do not drink alcohol or drive while on narcotic pain medicine. Note that many narcotic pain relievers also contain tylenol/acetaminophen. Please ensure that your total dose of acetaminophen from all sources does not exceed 3 grams (3000mg) per day. You may constipated on this medication, take a stool softener such as "Colace" twice a day while you are on it. Also recommend a fpfa-oat-dleltrn laxative such as senna or MiraLAX any day that you do not have a bowel movement. If you received narcotic pain medication in the emergency department, do not drive or operate machinery for the next 24 hours. Discharge Date/Time: 07/28/18 09:45
--- NOTE | 2018-07-28 09:08 | XRAY Report ---
Reason: fall 3 days ago, shoulder pain Procedure Date: 07/28/2018 Accession Number: [id number] / [id number] Procedure: XR - Shoulder 3 View RT CPT Code: FULL RESULT: EXAM: RIGHT SHOULDER RADIOGRAPHY EXAM DATE: 07/28/2018 08:55 AM. CLINICAL HISTORY: Fell 3 days ago. Right shoulder pain. COMPARISON: SHOULDER 3 VIEW RT 09/23/2016 1:41 AM CHEST 2 VIEW 04/05/2018 3:36 PM. TECHNIQUE: 3 views. FINDINGS: Bones: Diffusely demineralized. No fracture or bone lesion. Joints: No dislocation. There is superior subluxation of the humeral head with narrowing of the subacromial space, similar to prior. There is marginal spurring or possible intra-articular loose body near the inferior margin of the humeral head. There are mild degenerative changes of the acromioclavicular joint. Soft tissues: The visualized hemithorax is unremarkable. No soft tissue swelling. IMPRESSION: 1. No fracture or other acute osseous abnormality identified. Bones are diffusely demineralized. 2. Similar superior subluxation of the humeral head, which may be seen in the setting of chronic rotator cuff tear. No dislocation. 3. Moderate marginal osteophyte formation versus possible intra-articular loose body at the inferior margin of the humeral head. [facility]
== END 2018-07-28 09:45 | disposition home or self-care (01) ==
LOC: ED 07:59
DX: S40.011A Contusion of right shoulder, initial encounter (principal); W18.30XA Fall on same level, unspecified, initial encounter; Y92.009 Unspecified place in unspecified non-institutional (private) residence as the place of occurrence of the external cause; I10 Essential (primary) hypertension; Z79.82 Long term (current) use of aspirin; F17.200 Nicotine dependence, unspecified, uncomplicated
CPT/HCPCS: 73030; 99283; A9270

== ENCOUNTER 2019-04-15 14:34 | Outpatient (CLI) | payer MEDICARE, MEDICAID ==
[2019-04-15 18:57] LABS: BILIRUBIN,URINE NEGATIVE (NEGATIVE); GLUCOSE, URINE (UA) NEGATIVE (NEGATIVE); KETONES,URINE (UA) NEGATIVE (NEGATIVE); LEUKOCYTE ESTERASE, URINE MODERATE (NEGATIVE); NITRITE,URINE NEGATIVE (NEGATIVE); OCCULT BLOOD,URINE TRACE-INTA (NEGATIVE); PROTEIN,URINE NEGATIVE (NEGATIVE); UROBILINOGEN,URINE 0.2 (NORMAL) E.U./dL (NORMAL)
[2019-04-15 19:09] LABS: CLARITY,URINE HAZY (CLEAR)
[2019-04-15 19:14] LABS: BACTERIA,URINE Many /HPF (None Seen); RBC,URINE 0-5 /HPF (0-5); SQUAMOUS EPITHELIAL CELL,UR MANY Squamous (<= Few)
== END 2019-04-15 23:59 | disposition home or self-care (01) ==
LOC: LAB.N 14:34
PROVIDERS: ATTEND Physician Assistant Medical
DX: R10.9 Unspecified abdominal pain (principal); R30.0 Dysuria
CPT/HCPCS: 81001; 87086

== ENCOUNTER 2019-04-15 14:36 | Outpatient (CLI) | payer MEDICARE, MEDICAID ==
--- NOTE | 2019-04-16 09:29 | XRAY Report ---
Reason: FLANK PAIN Procedure Date: 04/15/2019 Accession Number: [id number] / [id number] Procedure: XRN - Abdomen 1 View X-Ray CPT Code: 69739 Addended Final Report FULL RESULT: EXAM: ABDOMEN RADIOGRAPHY EXAM DATE: 04/15/2019 03:00 PM. CLINICAL HISTORY: FLANK PAIN. COMPARISON: None. TECHNIQUE: 1 view. FINDINGS: Bowel Gas Pattern: Within normal limits. No dilated loops. Other: The kidneys are obscured by bowel gas and stool. No definite calcification seen projecting over the kidneys or expected course of the renal collecting system. There are calcifications protecting over the pelvis. IMPRESSION: Negative abdomen radiography. [facility] ADDENDUM: 04/27/19 07:49 There is a comparison study from 04/09/2019. No renal stones were seen on this comparison examination.
== END 2019-04-15 14:37 | disposition home or self-care (01) ==
LOC: DI.N 14:36
PROVIDERS: ATTEND Physician Assistant Medical
DX: R10.9 Unspecified abdominal pain (principal); R30.0 Dysuria
CPT/HCPCS: 74018; 81001; 87086